=== PATIENT | female | born 1960 | race Caucasian/White ===

== ENCOUNTER 2019-08-04 14:30 | Emergency (ER) | payer OTHER, SELFPAY ==
[2019-08-04 14:31] VITALS: BP 158/79; PULSE 78; RESP 15; TEMP 36.7; O2SAT 94; BMI 42.3
[2019-08-04 14:35] VITALS: O2SAT 95
--- NOTE | 2019-08-04 14:42 | EKG12_ITS ---
Test Reason : SOB Blood Pressure : / mmHG Vent. Rate : 077 BPM Atrial Rate : 077 BPM P-R Int : 144 ms QRS Dur : 092 ms QT Int : 390 ms P-R-T Axes : 050 -08 023 degrees QTc Int : 441 ms Normal sinus rhythm Left ventricular hypertrophy with repolarization abnormality Abnormal ECG Confirmed by ZHANG BETHEA, ANNIE ([id number]), scientific editor MAUREEN LANDRY ([id number]) on 08/07/2019 11:42:03 AM Referred By: KEE Confirmed By:DARIN HOLCOMB MD
--- NOTE | 2019-08-04 14:42 | RAD_ITS ---
STUDY: X-RAY CHEST REASON FOR EXAM: Female, 59 years old. SOB, COUGH TECHNIQUE: Single AP portable view of the chest. COMPARISON: Comparison is made with prior study dated November 21, 2016. FINDINGS: EKG electrodes are seen. Mild degree of vascular congestion. There is no demonstrated pleural abnormality. There is mild cardiac enlargement. Normal mediastinum and jones. Normal visualized pulmonary arteries. There is atherosclerotic tortuosity of the aortic arch and descending thoracic aorta. There are diffuse degenerative changes of the visualized thoracic spine. Normal visualized ribs, clavicles, and shoulders. There is no demonstrated abnormality of the visualized soft tissue structures of the upper abdomen. RAD/Chest 1 View (Portable) IMPRESSION: Mild degree of vascular congestion. Electronically Signed: Alan Glasgow, at 15:00 EDT , Service support ,
--- NOTE | 2019-08-04 14:43 | ED.DCSUM_ITS ---
History of Present Illness Chief Complaint: Shortness of Breath Informant: Patient Onset: Weeks Current Severity: Mild Maximum Severity: Moderate Narrative: Patient presents with URI symptoms and cough. She states that about 2 weeks ago she became ill with flulike symptoms. She thought she was over that infection and went back to work last Saturday. By Saturday she had developed recurrent URI symptoms with cough. She was seen at urgent care. She had a nonspecific chest x-ray. She was given prednisone and albuterol inhaler. Patient states her symptoms worsened today. She felt some palpitations and called EMS. They gave a DuoNeb treatment in route. - Past Medical History (1) HLD (hyperlipidemia) Status: Chronic (2) HTN (hypertension) Status: Chronic (3) MAIA (obstructive sleep apnea) Status: Chronic (4) TIA (transient ischemic attack) Status: Chronic Past Medical History - Allergies and Home Meds Allergies/Adverse Reactions: Allergies No Known Allergies Allergy (Verified 01/13/18 08:35) Primary Care Physician: Dannie Ulloa MD [Primary Care Provider] - Prior records reviewed: Yes Surgical History: no surgical history Smoking Status: Never smoker - Family History Maternal Family History: Family History (Last Reviewed 01/13/18 @ 08:35 by Kelly Roche) Father Sudden cardiac Heart disease Family History: Reports: Dementia - age 70's Paternal Family History: Family History (Last Reviewed 01/13/18 @ 08:35 by Kelly Roche) Father Sudden cardiac Heart disease Family History: Reports: Heart Disease - age 55 Review of Systems General: Reports: Fever, Subjective Eyes: Denies: Visual changes - bilaterally ENT: Denies: Bilateral ear pain, Sore throat Cardiovascular: Reports: Palpitations. Denies: Chest pain Respiratory: Reports: Dyspnea, Cough, Sputum - Rare sputum production Gastrointestinal: Denies: Abdominal pain, Nausea, Vomiting, Diarrhea Genitourinary: Denies: Dysuria Musculoskeletal: Denies: Extremity Pain Skin: Denies: Rash Neurological: Denies: Headache Hematologic: Denies: Easy bruising, Easy bleeding Allergy: Denies: Uticaria Physical Exam Vital Signs/Narrative: Vital Signs Temp Pulse Resp BP Pulse Ox 08/04/19 14:31 98.1 F 78 15 158/79 H 94 Inital Vital Signs reviewed: Yes General: Well nourished, Well developed Head: Normocephalic ENT: Moist mucous membranes Neck: Supple Cardiovascular: Regular rate, Regular rhythm Respiratory: No distress, CTA bilaterally, - - Slight decreased air movement throughout.. Negative for: Rhonchi, Wheezing Abdomen: Soft, Nontender Extremities: Nontender, No edema Skin: Normal color, No rash Neurological: Alert, Oriented x3 Psychological: Normal affect Diagnostic/Tx/Re-eval Impressions Chest X-Ray 08/04/19 14:42 IMPRESSION: Mild degree of vascular congestion. Electronically Signed: Alan Pee, at 15:00 EDT , Service support , 08/04/19 14:42 Chest 1 View (Portable) [RAD] Stat Laboratory Results 08/04/19 08/04/19 08/04/19 14:55 14:55 14:55 WBC 9.5 RBC 4.92 Hgb 14.1 Hct 43.6 MCV 88.6 MCH 28.7 MCHC 32.3 RDW Std Deviation 46.4 H RDW Coeff of Cathy 14.5 Plt Count 328 MPV 9.7 Immature Gran % (Auto) 1.500 H Neut % (Auto) 82.5 H Lymph % (Auto) 12.9 L [place] % (Auto) 2.8 Eos % (Auto) 0.1 Baso % (Auto) 0.2 Absolute Neuts (auto) 7.8 H Absolute Lymphs (auto) 1.22 Nucleated RBC % 0 D-Dimer Quant (PE/DVT) < 0.27 L Sodium 138 Potassium 3.8 Chloride 105 Carbon Dioxide 25.0 Anion Gap 8 BUN 21 H Creatinine 1.08 H Estim Creat Clear Calc 53.19 Est GFR (MDRD) Af Amer 66 Est GFR (MDRD) Non-Af 55 L BUN/Creatinine Ratio 19.4 Glucose 350 H Calcium 8.9 Troponin I < 0.015 B-Natriuretic Peptide 08/04/19 14:55 WBC RBC Hgb Hct MCV MCH MCHC RDW Std Deviation RDW Coeff of Cathy Plt Count MPV Immature Gran % (Auto) Neut % (Auto) Lymph % (Auto) [place] % (Auto) Eos % (Auto) Baso % (Auto) Absolute Neuts (auto) Absolute Lymphs (auto) Nucleated RBC % D-Dimer Quant (PE/DVT) Sodium Potassium Chloride Carbon Dioxide Anion Gap BUN Creatinine Estim Creat Clear Calc Est GFR (MDRD) Af Amer Est GFR (MDRD) Non-Af BUN/Creatinine Ratio Glucose Calcium Troponin I B-Natriuretic Peptide 48.5 - EKG Initial EKG Interpretation: Sinus Rhythm - Sinus at 77 with no acute ischemia. - Medical Decision Making Patient was given a DuoNeb treatment with EMS. She does not have any wheezing here. I was able to review EMS note. She was not hypoxic with EMS and they document only diminished breath sounds. On repeat evaluation patient is resting comfortably. I reviewed her test results with her. At this time I will cover her with antibiotics secondary to bronchitis as she has been ill now for 2 weeks. First dose will be given here and prescription will be sent to [facility]. Patient's blood sugar is elevated today but she has been on steroids. I did advise her of this and she needs to have this rechecked. ED Disposition - Plan for ED Patient: Disposition: Home or Assisted Living Diagnosis: Bronchitis Instructions: BRONCHITIS, Antiobiotic Treatment (Adult) Prescriptions: Doxycycline 100 mg PO BID #20 cap Transmission Status: Pending to [facility]/pharmacy #[id number] Referrals: Dannie Ulloa MD [Primary Care Provider] - 1 Week if not improving
[2019-08-04 15:04] LABS: Absolute Lymphocyte Count 1.22 X10^3/uL (0.83-4.51); Absolute Neutrophil Count 7.8 X10^3/uL (2.0-7.7); Basophil# 0.02 X10^3/uL; Basophil% 0.2 % (0-1); Eosinophil# 0.01 X10^3/uL; Eosinophils% 0.1 % (0-5); Hematocrit 43.6 % (37-47); Hemoglobin 14.1 g/dL (12.0-15.0); Lymphocyte # 1.22 X10^3/ul (4.0); Lymphocyte % 12.9 % (19-41); Mean Corp Hgb Conc 32.3 g/dL (32-36); Mean Corpuscular Hgb 28.7 pg (27.0-32.0); Mean Corpuscular Volume 88.6 fL (81-99); Mean Platelet Vol. 9.7 fl (6.2-12.0); Monocyte# 0.27 X10^3/uL; Monocyte% 2.8 % (0-10); NRBC Flagged by Analyzer 0 % (0-5); Neutrophil # 7.83 X10^3/uL (2.7-7.7); Neutrophil % 82.5 % (47-70); Platelet Count 328 K/mm3 (150-450); RBC Distribution Width CV 14.5 % (11.6-14.6); RBC Distribution Width SD 46.4 fl (35.1-43.9); Red Blood Count 4.92 M/mm3 (4.2-5.4); White Blood Count 9.5 K/mm3 (4.4-11.0)
[2019-08-04 15:19] LABS: D-Dimer Quantitative (DVT/PE) < 0.27 FEU/ug/m (0.27-0.49)
[2019-08-04 15:22] LABS: Anion Gap 8 (5-15); BUN 21 mg/dL (7-18); BUN/Creat Ratio 19.4 RATIO (10-20); Calcium,Total 8.9 mg/dL (8.5-10.1); Chloride 105 mmol/L (98-107); Creatinine, Serum 1.08 mg/dL (0.55-1.02); EST Glomerular Filtration Rate 55 mL/min (>60); Est Glom Filt Rate - Afr Amer 66 mL/min (>60); Estimated Creatinine Clearance 53.19 ml/min; Glucose 350 mg/dL (74-106); Potassium 3.8 mmol/L (3.5-5.1); Sodium Level 138 mmol/L (136-145)
[2019-08-04 15:27] LABS: BNP,B-Type NATRIURETIC PEPTIDE 48.5 pg/mL (0-100)
[2019-08-04 17:20] VITALS: BP 160/87; PULSE 70; RESP 18; O2SAT 93
[2019-08-04] MEDS: Doxycycline 100 MG CAPSULE PO (17:30)
== END 2019-08-04 17:53 | disposition home or self-care (01) ==
PROVIDERS: Emergency Provider Emergency Medicine; PCP Internal Medicine
DX: J40 Bronchitis, not specified as acute or chronic (principal); R00.2 Palpitations; I10 Essential (primary) hypertension; E78.5 Hyperlipidemia, unspecified; G47.33 Obstructive sleep apnea (adult) (pediatric); Z79.899 Other long term (current) drug therapy; Z86.73 Personal history of transient ischemic attack (TIA), and cerebral infarction without residual deficits
CPT/HCPCS: 71045; 80048; 83880; 84484; 85025; 85379; 93005; 99285; A4216

== ENCOUNTER 2019-11-18 20:16 | Emergency (ER) | payer OTHER, SELFPAY ==
[2019-11-18 20:17] VITALS: BP 173/74; PULSE 83; RESP 18; TEMP 36.6; O2SAT 95; BMI 41.7
[2019-11-18 20:19] VITALS: BP 173/74; PULSE 83; RESP 18; TEMP 36.6; O2SAT 95
--- NOTE | 2019-11-18 20:39 | EKG12_ITS ---
Test Reason : DYSRHYTHMIA Blood Pressure : / mmHG Vent. Rate : 068 BPM Atrial Rate : 068 BPM P-R Int : 152 ms QRS Dur : 086 ms QT Int : 408 ms P-R-T Axes : 042 -03 020 degrees QTc Int : 433 ms Normal sinus rhythm Normal ECG Confirmed by ZHANG BETHEA, ANNIE ([id number]), legal editor JOSE DORADO ([id number]) on 11/20/2019 10:15:30 AM Referred By: KEE Confirmed By:DARIN HOLCOMB MD
--- NOTE | 2019-11-18 20:40 | ED.DCSUM_ITS ---
History of Present Illness Chief Complaint: Cough Informant: Patient Onset: Today Current Severity: Mild Maximum Severity: Moderate Narrative: Patient present secondary to cough and shortness of breath. Symptoms started this morning. She had chills and subjective fever. Cough is nonproductive. She states she did feel like she was wheezing this morning. She initially thought she was getting bronchitis but started to feel worse this evening and came in for treatment. 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 - Past Medical History (1) HLD (hyperlipidemia) Status: Chronic (2) HTN (hypertension) Status: Chronic (3) MAIA (obstructive sleep apnea) Status: Chronic (4) TIA (transient ischemic attack) Status: Chronic Past Medical History - Allergies and Home Meds Allergies/Adverse Reactions: Allergies No Known Allergies Allergy (Verified 01/13/18 08:35) Primary Care Physician: Dannie Ulloa MD [Primary Care Provider] - Prior records reviewed: Yes Surgical History: no surgical history Smoking Status: Never smoker - Family History Maternal Family History: Family History (Last Reviewed 01/13/18 @ 08:35 by Kelly Roche) Father Sudden cardiac Heart disease Family History: Reports: Dementia - age 70's Paternal Family History: Family History (Last Reviewed 01/13/18 @ 08:35 by Kelly Roche) Father Sudden cardiac Heart disease Family History: Reports: Heart Disease - age 55 Review of Systems General: Reports: Chills, Fever, Subjective Eyes: Denies: Visual changes - bilaterally ENT: Denies: Bilateral ear pain Cardiovascular: Denies: Chest pain Respiratory: Reports: Dyspnea, Cough. Denies: Sputum Gastrointestinal: Reports: Abdominal pain, Nausea. Denies: Vomiting Genitourinary: Denies: Dysuria Musculoskeletal: Reports: Swelling. Denies: Extremity Pain Skin: Denies: Rash Neurological: Denies: Headache Hematologic: Denies: Easy bruising, Easy bleeding Allergy: Denies: Uticaria Physical Exam Vital Signs/Narrative: Vital Signs Temp Pulse Resp BP Pulse Ox 11/18/19 20:19 97.9 F 83 18 173/74 H 95 11/18/19 20:17 97.9 F 83 18 173/74 H 95 Inital Vital Signs reviewed: Yes General: Well nourished, Well developed Head: Normocephalic ENT: Moist mucous membranes Neck: Supple Cardiovascular: Regular rate, Regular rhythm Respiratory: No distress, CTA bilaterally Abdomen: Soft, Nontender, Normal bowel sounds Extremities: - - 2+ edema left lower extremity. No focal tenderness. No palpable cords. Skin: Normal color Neurological: Alert, Oriented x3 Psychological: Normal affect Diagnostic/Tx/Re-eval Impressions Chest X-Ray 11/18/19 21:00 IMPRESSION: Findings suspicious for Covid 19 pneumonia. Clinical correlation is recommended Electronically Signed: Micha Gonzalez MD at 21:38 EDT , Service support , 11/18/19 21:00 Chest 1 View (Portable) [RAD] Stat Laboratory Results 11/18/19 11/18/19 11/18/19 20:49 20:50 20:50 WBC 7.4 RBC 4.64 Hgb 13.6 Hct 42.1 MCV 90.7 MCH 29.3 MCHC 32.3 RDW Std Deviation 48.9 H RDW Coeff of Cathy 14.6 Plt Count 298 MPV 10.0 Immature Gran % (Auto) 0.400 Neut % (Auto) 69.3 Lymph % (Auto) 18.[address] [place] % (Auto) 8.9 Eos % (Auto) 2.7 Baso % (Auto) 0.4 Absolute Neuts (auto) 5.1 Absolute Lymphs (auto) 1.36 Nucleated RBC % 0 Sodium 140 Potassium 3.5 Chloride 107 Carbon Dioxide 28.0 Anion Gap 5 BUN 18 Creatinine 0.89 Estim Creat Clear Calc 66.96 Est GFR (MDRD) Af Amer 83 Est GFR (MDRD) Non-Af 68 BUN/Creatinine Ratio 20.2 H Glucose 149 H Calcium 8.6 Troponin I < 0.015 B-Natriuretic Peptide COVID-19 (JOSE ENRIQUE) Negative 11/18/19 20:50 WBC RBC Hgb Hct MCV MCH MCHC RDW Std Deviation RDW Coeff of Cathy Plt Count MPV Immature Gran % (Auto) Neut % (Auto) Lymph % (Auto) [place] % (Auto) Eos % (Auto) Baso % (Auto) Absolute Neuts (auto) Absolute Lymphs (auto) Nucleated RBC % Sodium Potassium Chloride Carbon Dioxide Anion Gap BUN Creatinine Estim Creat Clear Calc Est GFR (MDRD) Af Amer Est GFR (MDRD) Non-Af BUN/Creatinine Ratio Glucose Calcium Troponin I B-Natriuretic Peptide 13.4 COVID-19 (JOSE ENRIQUE) - EKG Initial EKG Interpretation: Sinus Rhythm - Sinus at 68 with no acute ischemia. - Medical Decision Making She was given albuterol MDI on arrival. She does feel this helped her breathing. Work-up at this time is unremarkable. Although her Covid test is negative there are changes noted on her chest x-ray which may be consistent with Covid infection. In light of this I advised the patient that she should self monitor at home and avoid exposure to people until she is completely free of all respiratory symptoms for at least 4 days. She will be treated with a course of doxycycline for bronchitis. ED Disposition - Plan for ED Patient: Disposition: Home or Assisted Living Diagnosis: Bronchitis Instructions: ED Upper Resp Infec Abx Tx Prescriptions: Doxycycline 100 mg PO BID #20 cap Transmission Status: Pending to [facility]/pharmacy #[id number] Referrals: Dannie Ulloa MD [Primary Care Provider] - 1-2 Weeks
--- NOTE | 2019-11-18 21:00 | RAD_ITS ---
STUDY: X-RAY CHEST REASON FOR EXAM: Female, 59 years old. COUGH, CHILLS, SHORTNESS OF BREATH, FATIGUE, WEAKNESS. TECHNIQUE: AP portable COMPARISON: None. FINDINGS: There is interstitial thickening seen in the right lower lobe with diffusely increased density suspicious for atypical viral pneumonia.. There is no demonstrated pleural abnormality. Heart is enlarged. Normal mediastinum and jones. Normal visualized pulmonary arteries. Normal visualized aortic arch and descending thoracic aorta. Dorsal spine demonstrates degenerative change Normal visualized ribs, clavicles, and shoulders. There is no demonstrated abnormality of the visualized soft tissue structures of the upper abdomen. RAD/Chest 1 View (Portable) IMPRESSION: Findings suspicious for Covid 19 pneumonia. Clinical correlation is recommended Electronically Signed: Micha Gonzalez MD at 21:38 EDT , Service support ,
[2019-11-18 21:07] LABS: Absolute Lymphocyte Count 1.36 X10^3/uL (0.83-4.51); Absolute Neutrophil Count 5.1 X10^3/uL (2.0-7.7); Basophil# 0.03 X10^3/uL; Basophil% 0.4 % (0-1); Eosinophils% 2.7 % (0-5); Hematocrit 42.1 % (37-47); Hemoglobin 13.6 g/dL (12.0-15.0); Lymphocyte # 1.36 X10^3/ul (4.0); Lymphocyte % 18.3 % (19-41); Mean Corp Hgb Conc 32.3 g/dL (32-36); Mean Corpuscular Hgb 29.3 pg (27.0-32.0); Mean Corpuscular Volume 90.7 fL (81-99); Monocyte# 0.66 X10^3/uL; Monocyte% 8.9 % (0-10); NRBC Flagged by Analyzer 0 % (0-5); Neutrophil # 5.14 X10^3/uL (2.7-7.7); Neutrophil % 69.3 % (47-70); Platelet Count 298 K/mm3 (150-450); RBC Distribution Width CV 14.6 % (11.6-14.6); RBC Distribution Width SD 48.9 fl (35.1-43.9); Red Blood Count 4.64 M/mm3 (4.2-5.4); White Blood Count 7.4 K/mm3 (4.4-11.0)
[2019-11-18 21:21] LABS: Anion Gap 5 (5-15); BUN 18 mg/dL (7-18); BUN/Creat Ratio 20.2 RATIO (10-20); Calcium,Total 8.6 mg/dL (8.5-10.1); Chloride 107 mmol/L (98-107); Creatinine, Serum 0.89 mg/dL (0.55-1.02); EST Glomerular Filtration Rate 68 mL/min (>60); Est Glom Filt Rate - Afr Amer 83 mL/min (>60); Estimated Creatinine Clearance 66.96 ml/min; Glucose 149 mg/dL (74-106); Potassium 3.5 mmol/L (3.5-5.1); Sodium Level 140 mmol/L (136-145)
[2019-11-18 21:35] LABS: BNP,B-Type NATRIURETIC PEPTIDE 13.4 pg/mL (0-100)
[2019-11-18 22:26] LABS: Probe Check PASS; Specimen Processing Control PASS
[2019-11-18 22:42] VITALS: BP 141/78; PULSE 74; RESP 17; O2SAT 94
[2019-11-18 22:43] VITALS: BP 141/78; PULSE 74; RESP 17; O2SAT 94
[2019-11-18] MEDS: Doxycycline 100 MG CAPSULE PO (23:04)
== END 2019-11-18 23:06 | disposition home or self-care (01) ==
PROVIDERS: Emergency Provider Emergency Medicine; PCP Internal Medicine
DX: J40 Bronchitis, not specified as acute or chronic (principal); R06.2 Wheezing; I10 Essential (primary) hypertension; E78.5 Hyperlipidemia, unspecified; G47.33 Obstructive sleep apnea (adult) (pediatric); Z79.899 Other long term (current) drug therapy; Z86.73 Personal history of transient ischemic attack (TIA), and cerebral infarction without residual deficits
CPT/HCPCS: 71045; 80048; 83880; 84484; 85025; 87635; 93005; 99285; G2023; U0003

== ENCOUNTER → 2019-11-25 11:40 | Outpatient (CLI) | payer OTHER, SELFPAY ==
[2019-11-18 20:17] VITALS: BMI 41.7
== END ==
PROVIDERS: PCP Internal Medicine; Visit Provider Internal Medicine
DX: Z20.828 Contact with and (suspected) exposure to other viral communicable diseases (principal); J18.9 Pneumonia, unspecified organism
CPT/HCPCS: 87635; G2023; U0003

== ENCOUNTER 2020-10-07 14:35 | Emergency (ER) | payer MEDICAID, SELFPAY ==
[2020-10-07 14:37] VITALS: BP 123/76; PULSE 61; RESP 17; TEMP 36.2; O2SAT 95; BMI 38.5
--- NOTE | 2020-10-07 14:40 | RAD_ITS ---
STUDY: X-RAY - LEFT FOOT CLINICAL: Female, 60 years old. INJURY TECHNIQUE: 3 view(s) of the foot. COMPARISON: None. FINDINGS: Calcaneal spurs. Normal visualized subtalar, talonavicular, calcaneocuboid, tarsal and tarsometatarsal articulations. Normal metatarsi. Normal metatarsophalangeal joint of the great toe. Normal tibial and fibular sesamoid bones. Normal interphalangeal joint of the great toe. Normal phalanges of the great toe. Normal second through fifth metatarsophalangeal joints. Normal interphalangeal joints and phalanges of the lesser toes. Small ankle joint effusion. Soft tissue swelling. RAD/Foot min 3 Views IMPRESSION: Soft tissue swelling. Electronically Signed: Alan Glasgow MD at 15:02 EDT , Service support ,
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
== END 2020-10-07 15:41 | disposition home or self-care (01) ==
LOC: ED 15:34
PROVIDERS: Emergency Provider Emergency Medicine; PCP Internal Medicine
DX: S90.32XA Contusion of left foot, initial encounter (principal); V43.92XA Unspecified car occupant injured in collision with other type car in traffic accident, initial encounter; Y93.9 Activity, unspecified; Y92.9 Unspecified place or not applicable; Y99.9 Unspecified external cause status; I10 Essential (primary) hypertension; E78.5 Hyperlipidemia, unspecified; Z79.1 Long term (current) use of non-steroidal anti-inflammatories (NSAID); Z79.899 Other long term (current) drug therapy
CPT/HCPCS: 73630; 99282

== ENCOUNTER → 2020-10-11 14:12 | Outpatient (CLI) | payer MEDICAID, SELFPAY ==
[2020-10-07 14:37] VITALS: BMI 38.5
--- NOTE | 2020-10-11 14:15 | VDLE_ITS ---
Reason For Study: pain Procedure LEFT This is a venous duplex using B-mode, color GSV is normal. flow and spectral Doppler. CFV is compressible, spontaneous, phasic, Exam performed in department. competent, and demonstrates normal The exam was abbreviated due to the COVID 19 augmentation. protocol. FV is compressible, spontaneous, phasic, The exam was diagnostic. competent and demonstrates normal A preliminary report was called and/or faxed augmentation. to Mary Richards. POP V is compressible, spontaneous, phasic, competent and demonstrates normal augmentation. T/P Trunk is compressible. PTV is compressible. LT PerV is compressible. VL/Venous Duplex US, Unilateral Interpretation Summary Deep veins of the left lower extremity are patent and compressible segmentally. There is no evidence of left lower extremity deep vein thrombosis. Valvular competence appears intac t within the proximal deep venous system on the left . The left great saphenous vein appears patent a nd compressible segmentally. Ordering Physician: Mary Richards Performed By: Yan Sandoval RVT
== END ==
PROVIDERS: PCP Internal Medicine; Referring Provider Nurse Practitioner; Visit Provider Nurse Practitioner
DX: M79.662 Pain in left lower leg (principal); R60.0 Localized edema
CPT/HCPCS: 93971

== ENCOUNTER → 2020-12-22 09:43 | Outpatient (CLI) | payer MEDICAID, SELFPAY ==
--- NOTE | 2020-12-22 09:59 | MRI_ITS ---
STUDY: MRI BRAIN WITH AND WITHOUT CONTRAST (ATTENTION INTERNAL AUDITORY CANALS - I.A.C.''s) REASON FOR EXAM: Female, 60 years old. HEARING LOSS right ear, tinnitus TECHNIQUE: Standardized multiplanar fat and water weighted pulse sequences were obtained. 23ml IV Dotarem was administered for the contrast portion of the examination. COMPARISON: None. FINDINGS: Normal bilateral temporal bones. Normal bilateral internal auditory canals. There is no demonstrated intracanalicular or cisternal vestibular schwannoma (acoustic neuroma). There is no enhancement of the bilateral VIIth or VIIIth cranial nerves. Normal bilateral cochlea, vestibules and semicircular canals. Normal size of the ventricles and extra-axial spaces for the patient''s age. Normal white matter tracts of the supratentorial brain. There is no evidence for recent intracranial ischemia or other cause of cytotoxic edema on diffusion weighted imaging (DWI). Normal bilateral basal ganglia. Normal thalami. Normal flow voids within the major intracranial circulation suggesting patency by spin echo criteria. Normal venous enhancement. There is no enhancing intra-axial or extra-axial abnormality. There is no extra-axial fluid accumulation. Normal sella turcica, pituitary gland, infundibular stalk, optic chiasm and hypothalamus. Normal tectal plate and pineal gland. Normal midbrain, noy and medulla. Normal cerebellum. Normal basal cisterns. No demonstrated orbital abnormality, within the constraints of a routine brain study. Normal visualized paranasal sinuses. Normal calvarium and skull base. Normal visualized soft tissue structures. Normal visualized upper cervical spine. MRI/Brain W/WO Contrast IMPRESSION: Normal unenhanced and enhanced MRI of the bilateral internal auditory canals (I.A.C''s). Electronically Signed: Gonzalez Carrillo MD at 13:04 EDT Tel , Service support ,
[2020-12-22 10:11] LABS: CREATININE FINGERSTICK 0.8 mg/dL (0.55-1.02); EGFR FINGERSTICK > 60.0000 mL/min (>60)
== END ==
PROVIDERS: PCP Internal Medicine; Referring Provider Otolaryngology Otolaryngology/Facial Plastic Surgery; Visit Provider Otolaryngology Otolaryngology/Facial Plastic Surgery
DX: H91.90 Unspecified hearing loss, unspecified ear (principal)
CPT/HCPCS: 70553; A9575

== ENCOUNTER 2021-03-05 10:25 | Emergency (ER) | payer MEDICAID, SELFPAY ==
[2021-03-05 10:27] VITALS: BP 168/77; PULSE 76; RESP 18; TEMP 36.4; O2SAT 95; BMI 38.9
[2021-03-05 10:51] VITALS: O2SAT 97
--- NOTE | 2021-03-05 10:51 | RAD_ITS ---
STUDY: X-RAY CHEST REASON FOR EXAM: Female, 61 years old. chest pain TECHNIQUE: Single AP portable view of the chest. COMPARISON: 11/18/2019 FINDINGS: Cardiac monitoring leads are present. The lungs are clear and expanded. There is no demonstrated pleural abnormality. There is mild cardiac enlargement. Normal mediastinum and jones. Normal visualized pulmonary arteries. Normal visualized aortic arch and descending thoracic aorta. There are diffuse degenerative changes of the visualized thoracic spine. Normal visualized ribs, clavicles, and shoulders. There is no demonstrated abnormality of the visualized soft tissue structures of the upper abdomen. RAD/Chest 1 View (Portable) IMPRESSION: Mild cardiac enlargement, stable in appearance. No acute intrathoracic process. The lungs now appear clear with no pulmonary infiltrates identified. Electronically Signed: Garima Alvarez MD at 11:39 EDT , Service support ,
--- NOTE | 2021-03-05 10:51 | EKG12_ITS ---
Test Reason : CP Blood Pressure : / mmHG Vent. Rate : 077 BPM Atrial Rate : 077 BPM P-R Int : 152 ms QRS Dur : 088 ms QT Int : 408 ms P-R-T Axes : 045 -02 -18 degrees QTc Int : 461 ms Normal sinus rhythm Nonspecific ST and T wave abnormality Abnormal ECG Confirmed by NAZ BETHEA, SURY ([id number]), continuity editor TAYLOR OAKLEY ([id number]) on 03/08/2021 9:24:19 AM Referred By: ADY Confirmed By:SURY CHILDS MD
--- NOTE | 2021-03-05 10:52 | ED.VIS.CHEST ---
HPI History of Present Illness Chief Complaint: Chest Pain Informant: patient Onset/Context/Timing Onset: Yesterday Activity at onset: gradual Timing: Continuous Quality: Positive for Sharp and Tightness Location: Substernal Worsened By: Nothing Relieved By: Nothing Associated Symptoms: Positive for Dyspnea, Lightheadedness and Palpitations; Negative for Nausea, Vomiting, Diaphoresis, Cough, Fever and Acid Reflux Narrative Narrative: Patient presents with chest pain that began yesterday. Patient states it has gradually gotten worse. Patient states it is worse this morning when she woke up. Patient describes it as sharp and tight. Patient states pain is over the substernal area. Patient states it radiates straight through to her back. Patient states it is worse whenever she takes a deep breath. Patient admits to some shortness of breath. Patient denies any nausea, vomiting, or diaphoresis. Patient denies any cough or fevers. Patient admits to some lightheadedness and some palpitations. [facility] Medical History (Updated 03/05/21 @ 14:[address] Bahman Roque DO) Abnormal electrocardiogram Chest pain, unspecified HLD (hyperlipidemia) HTN (hypertension) Hypokalemia Nonsustained ventricular tachycardia Syncope and collapse Home Medications sertraline 100 mg PO QHS 12/24/14 [History Last Taken 11/20/16] metoprolol succinate 25 mg PO DAILY #30 tab.er.24h 11/07/16 [Rx Last Taken 11/23/16] cyanocobalamin (vitamin B-12) 1,000 mcg PO DAILY 11/21/16 [History Last Taken 11/20/16] potassium chloride 20 meq PO DAILY 11/23/16 [History Last Taken 11/22/16] amlodipine 10 mg tablet 10 mg PO DAILY #30 tab 11/29/17 [Rx Last Taken Unknown] fluticasone furoate 2 sprays NS DAILY 08/04/19 [History Last Taken Unknown] meloxicam 15 mg PO DAILY 08/04/19 [History Last Taken Unknown] atorvastatin 20 mg PO DAILY 03/05/21 [History Last Taken Unknown] Allergy/AdvReac Type Severity Reaction Status Date / Time No Known Allergies Allergy Verified 03/05/21 10:25 Family History Father , age 55 Sudden cardiac Heart disease Surgical History Hx of left leg vein ablation (~09/2016) Social History Smoking Status: Never smoker alcohol intake: current alcohol intake frequency: holidays/special occasions only Alcohol type: beer, wine and hard liquor substance use type: does not use caffeine: Yes Type: coffee Number of servings: 3 what type of physical activity do you participate in: none seatbelt use: always do you feel safe at home: Yes ROS ROS ED Constitutional Constitutional ED: Denies chills or fever(s) Eyes Eyes: Denies blurry vision or change in vision ENT ENT ED: Denies rhinorrhea or sore throat Cardiovascular Cardiovascular: Reports chest pain and palpitations Respiratory/Chest Respiratory/Chest: Reports dyspnea; Denies cough Gastrointestinal Gastrointestinal: Reports nausea; Denies abdominal pain or vomiting Genitourinary Genitourinary ED: Denies dysuria or hematuria Musculoskeletal Musculoskeletal: Reports back pain; Denies neck pain Integumentary Denies abscess or rash Neurologic Neurologic: Reports headache(s); Denies weakness Allergic/Immunologic Allergic/Immunologic ED: Denies mouth swelling or urticaria EXAM Physical Exam Const Vital Signs: 03/05/21 10:27 03/05/21 10:44 03/05/21 10:51 Temperature 97.6 F L Temperature Source Temporal Pulse Rate 76 Respiratory Rate 18 Respiratory Effort Normal Non-Labored Respiratory Pattern Normal Blood Pressure 168/77 H Blood Pressure Mean 107 Pulse Ox 95 97 Oxygen Delivery Method Room Air Room Air 03/05/21 12:23 03/05/21 13:08 03/05/21 14:08 Temperature Temperature Source Pulse Rate 67 57 L 60 Respiratory Rate 18 18 17 Respiratory Effort Respiratory Pattern Blood Pressure 138/72 H 140/79 H 135/83 H Blood Pressure Mean 94 99 Pulse Ox Oxygen Delivery Method Positive well nourished, well developed and obese General Appearance ED: well developed Nutritional Appearance: obese HEENT normocephalic and atraumatic Eyes PERRL and EOMs intact bilaterally Neck supple and no JVD Chest Wall Chest: tenderness sternum Resp normal respiratory effort and clear to auscultation bilaterally Effort and Inspection: Negative for respiratory distress Cardio regular rate, regular rhythm and no murmurs GI normal to inspection, nondistended, normoactive bowel sounds, soft to palpation, non-tender and non-distended Extremity normal to inspection General Extremety ED: Negative for edema or tenderness General Extremity: Negative for edema Neuro oriented x3, CN's II-XII intact bilaterally and no sensory deficits noted Sensorium / Orientation: awake and alert Motor Exam: strength 5/5 throughout Psych mental status grossly normal Heart Score History: Slightly/Non-Suspicious ECG: Nonspecific Repolarization Age: >45 - <65 years Risk Factors: 1 or 2 Risk Factors Troponin: </= Normal Limit Score: 3 MDM MDM MDM Narrative Medical decision making narrative: EKG was obtained. On my interpretation, it shows normal sinus rhythm with a rate of 77. There are nonspecific ST-T wave changes in V4 through V6. CBC and basic metabolic profile were essentially within normal limits. High-sensitivity troponin was normal. Portable 1 view chest x-ray was obtained. On my interpretation, lung mccallum are clear. There is mild cardiomegaly. Bony thorax is normal. There is no acute process noted. Radiologist also interpreted the x-ray and agrees. 2-hour repeat high-sensitivity troponin was obtained and was still normal and unchanged. Patient was advised of her findings. Patient has a HEART score of 3. Patient was advised that this is low risk for acute cardiac event. Patient was instructed to follow-up with her primary care physician in 5 to 7 days. Patient understood and was agreeable with the plan. All questions were answered. Lab Data Labs: Laboratory Results - last 24 hr 03/05/21 03/05/21 03/05/21 10:35 10:35 12:40 WBC 5.3 RBC 4.72 Hgb 14.2 Hct 43.4 MCV 91.9 MCH 30.1 MCHC 32.7 RDW Std Deviation 48.9 H RDW Coeff of Cathy 14.4 Plt Count 257 MPV 11.0 Immature Gran % (Auto) 0.600 Neut % (Auto) 66.0 Lymph % (Auto) 23.6 Levy % (Auto) 6.2 Eos % (Auto) 3.0 Baso % (Auto) 0.6 Absolute Neuts (auto) 3.5 Absolute Lymphs (auto) 1.25 Nucleated RBC % 0 Sodium 142 Potassium 3.2 L Chloride 106 Carbon Dioxide 29.0 Anion Gap 7 BUN 17 Creatinine 0.94 Estim Creat Clear Calc 61.79 Est GFR (MDRD) Af Amer 77 Est GFR (MDRD) Non-Af 64 BUN/Creatinine Ratio 18.0 Glucose 170 H Calcium 8.9 Troponin I High Sens 10 10 Radiography Diagnostic Testing: Clinical Impression(s) from Imaging Studies Chest X-Ray 03/05/21 10:51 IMPRESSION: Mild cardiac enlargement, stable in appearance. No acute intrathoracic process. The lungs now appear clear with no pulmonary infiltrates identified. Electronically Signed: Garima Alvarez MD at 11:39 EDT , Service support , EKG Initial EKG: Attestation: I personally reviewed and interpreted this EKG as follows: Interpretation: Sinus Rhythm (77) and Non-Specific ST Changes Prior EKG tracings: available for review Discharge Plan Triage Chief Complaint: Chest Pain ED Provider: Bahman Roque Dx/Rx/DC Orders Clinical Impression: Chest pain of uncertain etiology Instructions: ED Chest Pain, Uncertain Cause Prescriptions: No Action sertraline 100 MG tablet 100 mg PO QHS RF: 0 metoprolol succinate 25 MG tablet extended release 24 hr 25 mg PO DAILY Qty: 30 RF: 0 potassium chloride 20 MEQ tablet,ER particles/crystals 20 meq PO DAILY RF: 0 cyanocobalamin (vitamin B-12) 1,000 MCG tablet 1,000 mcg PO DAILY RF: 0 meloxicam 15 MG tablet 15 mg PO DAILY RF: 0 fluticasone furoate 5.9 ML spray,suspension 2 sprays NS DAILY RF: 0 atorvastatin 20 MG tablet 20 mg PO DAILY RF: 0 amlodipine 10 mg tablet 10 mg PO DAILY Qty: 30 RF: 11 Primary Care Provider: Dannie Ulloa Referrals: Dannie Ulloa MD [Primary Care Provider] - 3-5 Days Disposition Disposition: Home, Self Care Discharge Date/Time: 03/05/21 14:09
[2021-03-05] MEDS: Aspirin 81 MG TAB.CHEW 324 MG PO (10:57)
[2021-03-05 11:01] LABS: Absolute Lymphocyte Count 1.25 X10^3/uL (0.83-4.51); Absolute Neutrophil Count 3.5 X10^3/uL (2.0-7.7); Basophil# 0.03 X10^3/uL; Basophil% 0.6 % (0-1); Eosinophil# 0.16 X10^3/uL; Hematocrit 43.4 % (37-47); Hemoglobin 14.2 g/dL (12.0-15.0); Lymphocyte # 1.25 X10^3/ul (0.83-4.51); Lymphocyte % 23.6 % (19-41); Mean Corp Hgb Conc 32.7 g/dL (32-36); Mean Corpuscular Hgb 30.1 pg (27.0-32.0); Mean Corpuscular Volume 91.9 fL (81-99); Monocyte# 0.33 X10^3/uL; Monocyte% 6.2 % (0-10); NRBC Flagged by Analyzer 0 % (0-5); Neutrophil # 3.49 X10^3/uL (2.7-7.7); Platelet Count 257 K/mm3 (150-450); RBC Distribution Width CV 14.4 % (11.6-14.6); RBC Distribution Width SD 48.9 fl (35.1-43.9); Red Blood Count 4.72 M/mm3 (4.2-5.4); White Blood Count 5.3 K/mm3 (4.4-11.0)
[2021-03-05 11:15] LABS: Anion Gap 7 (5-15); BUN 17 mg/dL (7-18); Calcium,Total 8.9 mg/dL (8.5-10.1); Chloride 106 mmol/L (98-107); Creatinine, Serum 0.94 mg/dL (0.55-1.02); EST Glomerular Filtration Rate 64 mL/min (>60); Est Glom Filt Rate - Afr Amer 77 mL/min (>60); Estimated Creatinine Clearance 61.79 ml/min; Glucose 170 mg/dL (74-106); Potassium 3.2 mmol/L (3.5-5.1); Sodium Level 142 mmol/L (136-145); Troponin-I HS 10 pg/mL (3.0-54.0)
[2021-03-05 12:23] VITALS: BP 138/72; PULSE 67; RESP 18
[2021-03-05 13:02] LABS: Troponin-I HS 10 pg/mL (3.0-54.0)
[2021-03-05 13:08] VITALS: BP 140/79; PULSE 57; RESP 18
[2021-03-05 14:08] VITALS: BP 135/83; PULSE 60; RESP 17
== END 2021-03-05 14:09 | disposition home or self-care (01) ==
PROVIDERS: Emergency Provider Emergency Medicine; PCP Internal Medicine
DX: R07.9 Chest pain, unspecified (principal); R06.02 Shortness of breath; R42 Dizziness and giddiness; R00.2 Palpitations; I47.2 Ventricular tachycardia; I10 Essential (primary) hypertension; E78.5 Hyperlipidemia, unspecified; E66.9 Obesity, unspecified; Z79.1 Long term (current) use of non-steroidal anti-inflammatories (NSAID); Z79.899 Other long term (current) drug therapy
CPT/HCPCS: 36415; 71045; 80048; 84484; 85025; 93005; 99285; A4216

== ENCOUNTER 2021-07-19 11:43 | Emergency (ER) | payer MEDICAID, SELFPAY ==
[2021-07-19 11:44] VITALS: BP 155/75; PULSE 78; RESP 24; TEMP 36.1; O2SAT 95; BMI 39.2
[2021-07-19] MEDS: Ipratropium/Albuterol Sulfate 3 ML AMPUL.NEB INHALATION (12:36)
[2021-07-19] MEDS: Albuterol 2.5 MG/3 ML VIAL.NEB. INHALATION (12:36)
[2021-07-19 12:37] VITALS: PULSE 70; RESP 18
--- NOTE | 2021-07-19 12:45 | RAD_ITS ---
STUDY: X-RAY CHEST REASON FOR EXAM: Female, 61 years old. Cough TECHNIQUE: Single AP portable view of the chest. COMPARISON: Comparison is made with prior study dated 03/05/2021. FINDINGS: Mild increased markings at the right lung base suggestive of early right lower lobe infiltrate. There is no demonstrated pleural abnormality. Normal size heart. Normal mediastinum and jones. Normal visualized pulmonary arteries. There is atherosclerotic tortuosity of the aortic arch and descending thoracic aorta. There are diffuse degenerative changes of the visualized thoracic spine. Normal visualized ribs, clavicles, and shoulders. There is no demonstrated abnormality of the visualized soft tissue structures of the upper abdomen. RAD/Chest 1 View (Portable) IMPRESSION: Findings suggestive of early right lower lobe infiltrate. Electronically Signed: Alan Glasgow MD at 13:08 EST ,
--- NOTE | 2021-07-19 12:47 | EX.ED.DYSGE1 ---
HPI History of Present Illness Chief Complaint: Shortness of Breath Informant: patient Narrative Narrative: 61-year-old female presents the emergency department with dyspnea and cough. Patient states that she frequently will get bronchitis this time of year. Today she was feeling more tightness in the chest especially with time to take a breath and hearing wheezing she used to hair letter several times but it did not help. She called her doctor's office advised her to come to emergency. She denies any fever. No sore throat no vomiting or diarrhea. [facility] Medical History (Updated 07/19/21 @ 13:[address] Jose Cruz Baig DO) Abnormal electrocardiogram Chest pain, unspecified HLD (hyperlipidemia) HTN (hypertension) Hypokalemia Nonsustained ventricular tachycardia Syncope and collapse Home Medications sertraline 100 mg PO QHS 12/24/14 [History Last Taken 11/20/16] metoprolol succinate 25 mg PO DAILY #30 tab.er.24h 11/07/16 [Rx Last Taken 11/23/16] potassium chloride 20 meq PO DAILY 11/23/16 [History Last Taken 11/22/16] amlodipine 10 mg tablet 10 mg PO DAILY #30 tab 11/29/17 [Rx Last Taken Unknown] meloxicam 15 mg PO DAILY 08/04/19 [History Last Taken Unknown] atorvastatin 20 mg PO DAILY 03/05/21 [History Last Taken Unknown] albuterol sulfate 2 puff INHALATION Q4H PRN PRN 07/19/21 [History Last Taken Unknown] amoxicillin-pot clavulanate 875 mg PO Q12H #20 tablet 07/19/21 [Rx Last Taken Unknown] azithromycin See Rx Instructions .ROUTE .COMPLEX #6 tab 07/19/21 [Rx Last Taken Unknown] prednisone 60 mg PO DAILY #15 tablet 07/19/21 [Rx Last Taken Unknown] valsartan-hydrochlorothiazide 1 tab PO DAILY 07/19/21 [History Last Taken Unknown] Allergy/AdvReac Type Severity Reaction Status Date / Time No Known Allergies Allergy Verified 07/19/21 11:48 Family History Father , age 55 Sudden cardiac Heart disease Surgical History Hx of left leg vein ablation (~09/2016) Social History Smoking Status: Never smoker alcohol intake: current alcohol intake frequency: holidays/special occasions only Alcohol type: beer, wine and hard liquor substance use type: does not use caffeine: Yes Type: coffee Number of servings: 3 what type of physical activity do you participate in: none seatbelt use: always do you feel safe at home: Yes ROS ROS ED Constitutional Constitutional ED: Denies chills, fever(s) or weight loss Eyes Eyes: Denies change in vision or diplopia ENT ENT ED: Denies ear pain, rhinorrhea or sore throat Cardiovascular Cardiovascular: Denies chest pain, orthopnea, palpitations or racing heartbeat Respiratory/Chest Respiratory/Chest: Reports cough and dyspnea; Denies orthopnea Gastrointestinal Gastrointestinal: Denies abdominal pain, diarrhea, nausea or vomiting Genitourinary Genitourinary ED: Denies dysuria, hematuria or urinary frequency Musculoskeletal Musculoskeletal: Denies arthralgias or myalgias Integumentary Denies abscess or rash Neurologic Neurologic: Denies headache(s) or weakness Psychiatric Psychiatric: Denies anxiety, depression, suicidal ideation or suicidal thoughts Endocrine Endocrinology: Denies polydipsia, polyphagia or polyuria Allergic/Immunologic Allergic/Immunologic ED: Denies mouth swelling, tongue swelling or urticaria EXAM Physical Exam Const Vital Signs: 07/19/21 11:44 07/19/21 11:57 07/19/21 12:37 Temperature 96.9 F L Temperature Source Temporal Pulse Rate 78 70 Respiratory Rate 24 H 18 Respiratory Effort Short of Breath Respiratory Pattern Tachypnea Normal Blood Pressure 155/75 H Blood Pressure Mean 101 Pulse Ox 95 Oxygen Delivery Method Room Air Positive well nourished, well developed and obese General Appearance ED: well developed Nutritional Appearance: obese HEENT Reports normocephalic, head/scalp atraumatic, TM's clear and moist mucous membranes Negative for trauma Tympanic Membrane ED: Yes TM's clear Eyes PERRL and EOMs intact bilaterally Neck no lymphadenopathy, supple and no JVD Resp normal respiratory effort Auscultation: wheezes expiratory wheezes and diminished lung sounds Cardio regular rate, regular rhythm and no murmurs GI normal to inspection, nondistended, normoactive bowel sounds and non-tender Palpation: soft Back/Spine no CVA tenderness and normal ROM Extremity normal to inspection General Extremety ED: Negative for edema General Extremity: Negative for edema Neuro oriented x3 and CN's II-XII intact bilaterally Sensorium / Orientation: alert Motor Exam: strength 5/5 throughout Psych mental status grossly normal Mood & Affect: Negative for depressed or tearful Skin no rashes or lesions noted and no wounds MDM MDM MDM Narrative Medical decision making narrative: My interpretation of the chest x-ray is early right lower lobe infiltrate. Patient received breathing treatment. She is not hypoxic tachypneic or febrile. Patient clinically appears well. She will be started on Augmentin and azithromycin given her chronic medical conditions. Return if worsening or concerns. She should change out her inhaler to a nonexpired inhaler when she gets at home. Radiography Diagnostic Testing: Clinical Impression(s) from Imaging Studies Chest X-Ray 07/19/21 12:45 IMPRESSION: Findings suggestive of early right lower lobe infiltrate. Electronically Signed: Alan Glasgow MD at 13:08 EST , Discharge Plan Triage Chief Complaint: Shortness of Breath ED Provider: Jose Cruz Baig Dx/Rx/DC Orders Clinical Impression: Pneumonia, Acute dyspnea Instructions: ED Pneumonia (Adult) Prescriptions: New prednisone 20 MG tablet 60 mg PO DAILY Qty: 15 RF: 0 amoxicillin-pot clavulanate [amoxicillin-pot clavulanate] 875 MG tablet 875 mg PO Q12H Qty: 20 RF: 0 azithromycin 250 mg tablet See Rx Instructions .ROUTE .COMPLEX Qty: 6 RF: 0 No Action sertraline 100 MG tablet 100 mg PO QHS RF: 0 metoprolol succinate 25 MG tablet extended release 24 hr 25 mg PO DAILY Qty: 30 RF: 0 potassium chloride 20 MEQ tablet,ER particles/crystals 20 meq PO DAILY RF: 0 meloxicam 15 MG tablet 15 mg PO DAILY RF: 0 atorvastatin 20 MG tablet 20 mg PO DAILY RF: 0 albuterol sulfate 90 mcg/actuation HFA aerosol inhaler 2 puff INHALATION Q4H PRN PRN (Reason: SOB) RF: 0 valsartan-hydrochlorothiazide 320-12.5 mg tablet 1 tab PO DAILY RF: 0 amlodipine 10 mg tablet 10 mg PO DAILY Qty: 30 RF: 11 Primary Care Provider: Dannie Ulloa Referrals: Dannie Ulloa MD [Primary Care Provider] - 1 Week if not improving Disposition Disposition: Home, Self Care
[2021-07-19] MEDS: predniSONE 20 MG Tablet 60 MG PO (12:51)
[2021-07-19 13:58] VITALS: PULSE 71; RESP 18; O2SAT 100
== END 2021-07-19 13:58 | disposition home or self-care (01) ==
PROVIDERS: Emergency Provider Emergency Medicine; PCP Internal Medicine; Visit Provider Emergency Medicine
DX: J18.9 Pneumonia, unspecified organism (principal); I10 Essential (primary) hypertension; Z20.822 Contact with and (suspected) exposure to COVID-19; E78.5 Hyperlipidemia, unspecified; Z79.899 Other long term (current) drug therapy; Z79.1 Long term (current) use of non-steroidal anti-inflammatories (NSAID); E66.9 Obesity, unspecified
CPT/HCPCS: 71045; 87426; 94640; 99283

== ENCOUNTER 2021-08-08 13:24 | Emergency (ER) | payer MEDICAID, SELFPAY ==
[2021-08-08 13:25] VITALS: BP 175/89; PULSE 83; RESP 22; TEMP 35.7; O2SAT 96; BMI 40.4
[2021-08-08 13:34] VITALS: O2SAT 97
--- NOTE | 2021-08-08 13:51 | ED.VIS.DYS ---
HPI History of Present Illness Chief Complaint: Shortness of Breath Informant: patient Onset/Context/Timing Onset: Days (4-5) Context: gradual Timing: Continuous Quality: Positive for Dyspnea on exertion and Wheezing Worsened by: Exertion Relieved by: Nothing Associated Symptoms cough, subjective, chills and sweats; Negative for rhinorrhea, ear pain, sore throat, clear sputum, white sputum, yellow sputum or green sputum Chest Pain: Positive for None Narrative Narrative: Patient presents with shortness of breath that has been getting worse over the past 4 to 5 days. Patient states she was recently treated for pneumonia. Patient states she finished her antibiotics for this. Patient states she feels like she was wheezing. Patient states it is worse with any exertion. Patient admits to a cough that just started today. Patient denies any sputum production. Patient admits to subjective chills and sweats. Patient denies any chest pain. Patient denies any sore throat or rhinorrhea. PE Risk Factors: Negative for Cancer, OCP + Smoking + > 35, Prior DVT or PE, Recent immobilization, Recent surgery and Recent travel [facility] Medical History (Updated 08/08/21 @ 16:[address] Bahman Roque, ) Abnormal electrocardiogram Chest pain, unspecified HLD (hyperlipidemia) HTN (hypertension) Hypokalemia Nonsustained ventricular tachycardia Syncope and collapse Home Medications sertraline 100 mg PO QHS 12/24/14 [History Last Taken 11/20/16] metoprolol succinate 25 mg PO DAILY #30 tab.er.24h 11/07/16 [Rx Last Taken 11/23/16] potassium chloride 20 meq PO DAILY 11/23/16 [History Last Taken 11/22/16] amlodipine 10 mg tablet 10 mg PO DAILY #30 tab 11/29/17 [Rx Last Taken Unknown] meloxicam 15 mg PO DAILY 08/04/19 [History Last Taken Unknown] atorvastatin 20 mg PO DAILY 03/05/21 [History Last Taken Unknown] albuterol sulfate 2 puff INHALATION Q4H PRN PRN 07/19/21 [History Last Taken Unknown] amoxicillin-pot clavulanate 875 mg PO Q12H #20 tablet 07/19/21 [Rx Last Taken Unknown] azithromycin See Rx Instructions .ROUTE .COMPLEX #6 tab 07/19/21 [Rx Last Taken Unknown] prednisone 60 mg PO DAILY #15 tablet 07/19/21 [Rx Last Taken Unknown] valsartan-hydrochlorothiazide 1 tab PO DAILY 07/19/21 [History Last Taken Unknown] Allergy/AdvReac Type Severity Reaction Status Date / Time No Known Allergies Allergy Verified 08/08/21 13:25 Family History Father , age 55 Sudden cardiac Heart disease Surgical History Hx of left leg vein ablation (~09/2016) Social History Smoking Status: Never smoker alcohol intake: current alcohol intake frequency: holidays/special occasions only Alcohol type: beer, wine and hard liquor substance use type: does not use caffeine: Yes Type: coffee Number of servings: 3 what type of physical activity do you participate in: none seatbelt use: always do you feel safe at home: Yes ROS ROS ED Constitutional Constitutional ED: Reports chills and sweats; Denies fever(s) Eyes Eyes: Denies blurry vision or change in vision ENT ENT ED: Denies rhinorrhea or sore throat Cardiovascular Cardiovascular: Denies chest pain or palpitations Respiratory/Chest Respiratory/Chest: Reports cough and dyspnea Gastrointestinal Gastrointestinal: Denies nausea or vomiting Genitourinary Genitourinary ED: Denies dysuria or hematuria Musculoskeletal Musculoskeletal: Reports back pain and neck pain Integumentary Denies abscess or rash Neurologic Neurologic: Reports headache(s); Denies weakness Allergic/Immunologic Allergic/Immunologic ED: Denies mouth swelling or urticaria EXAM Physical Exam Const Vital Signs: 08/08/21 13:25 08/08/21 13:34 08/08/21 14:14 Temperature 96.3 F L Temperature Source Temporal Pulse Rate 83 99 Respiratory Rate 22 H 19 H Respiratory Effort Short of Breath Respiratory Depth Normal Respiratory Pattern Normal Normal Blood Pressure 175/89 H Blood Pressure Mean 117 Pulse Ox 96 97 Oxygen Delivery Method Room Air Room Air Positive well nourished and well developed General Appearance ED: well developed and NAD HEENT Reports moist mucous membranes Neck supple and no JVD Resp normal respiratory effort Auscultation: wheezes Cardio regular rate and regular rhythm GI non-tender and non-distended Auscultation: normoactive bowel sounds Palpation: soft Neuro oriented x3, CN's II-XII intact bilaterally and no sensory deficits noted Sensorium / Orientation: alert Motor Exam: strength 5/5 throughout Psych mental status grossly normal MDM MDM MDM Narrative Medical decision making narrative: Patient was given a DuoNeb aerosol here. CBC was within normal limits. PT with INR and PTT were normal. D-dimer was normal. Comprehensive metabolic profile was obtained and was within normal limits. Portable 1 view chest x-ray was obtained. On my interpretation, lung mccallum are clear. There is normal cardiac silhouette. Bony thorax is normal. There is no acute process noted. Radiologist also interpreted the x-ray and agrees. Influenza A and influenza B swabs were obtained and were negative. COVID-19 rapid antigen was obtained and was negative. Patient was feeling somewhat better on reevaluation. Patient was given a repeat albuterol aerosol here. Patient was instructed to continue her inhalers as prescribed. Patient states she has an appoint with her primary care physician tomorrow. Patient was instructed to follow-up with this appointment. Patient understood and was agreeable with the plan. All questions were answered. Lab Data Attestation: I reviewed the patient's lab results. Labs: Laboratory Results - last 24 hr 08/08/21 08/08/21 08/08/21 14:08 14:08 14:08 WBC 5.8 RBC 4.59 Hgb 14.1 Hct 41.5 MCV 90.4 MCH 30.7 MCHC 34.0 RDW Std Deviation 48.4 H RDW Coeff of Cathy 14.6 Plt Count 226 MPV 9.7 Immature Gran % (Auto) 0.500 Neut % (Auto) 65.1 Lymph % (Auto) 18.9 L [place] % (Auto) 8.2 Eos % (Auto) 6.6 H Baso % (Auto) 0.7 Absolute Neuts (auto) 3.8 Absolute Lymphs (auto) 1.09 Nucleated RBC % 0 PT 12.7 INR 1.0 APTT 25.8 D-Dimer Quant (PE/DVT) 0.44 Sodium 139 Potassium 3.3 L Chloride 105 Carbon Dioxide 30.0 Anion Gap 4 L BUN 18 Creatinine 0.80 Estim Creat Clear Calc 72.61 Est GFR (MDRD) Af Amer 94 Est GFR (MDRD) Non-Af 77 BUN/Creatinine Ratio 22.6 H Glucose 104 Calcium 8.8 Total Bilirubin 0.40 AST 14 L ALT 30 Alkaline Phosphatase 92 Troponin I High Sens 11 Total Protein 6.9 Albumin 3.3 Globulin 3.6 Albumin/Globulin Ratio 0.9 Radiography Chest X-Ray - ED: 1 View, Read by ED Physician, Read by Radiologist, Normal and No Acute Disease Diagnostic Testing: Clinical Impression(s) from Imaging Studies Chest X-Ray 08/08/21 13:56 IMPRESSION: No acute findings. Electronically Signed: Damian Morales, at 14:18 EDT , Discharge Plan Triage Chief Complaint: Shortness of Breath ED Provider: Bahman Roque Dx/Rx/DC Orders Clinical Impression: Dyspnea Instructions: ED Dyspnea Prescriptions: No Action sertraline 100 MG tablet 100 mg PO QHS RF: 0 metoprolol succinate 25 MG tablet extended release 24 hr 25 mg PO DAILY Qty: 30 RF: 0 potassium chloride 20 MEQ tablet,ER particles/crystals 20 meq PO DAILY RF: 0 meloxicam 15 MG tablet 15 mg PO DAILY RF: 0 atorvastatin 20 MG tablet 20 mg PO DAILY RF: 0 albuterol sulfate 90 mcg/actuation HFA aerosol inhaler 2 puff INHALATION Q4H PRN PRN (Reason: SOB) RF: 0 valsartan-hydrochlorothiazide 320-12.5 mg tablet 1 tab PO DAILY RF: 0 prednisone 20 MG tablet 60 mg PO DAILY Qty: 15 RF: 0 amoxicillin-pot clavulanate [amoxicillin-pot clavulanate] 875 MG tablet 875 mg PO Q12H Qty: 20 RF: 0 azithromycin 250 mg tablet See Rx Instructions .ROUTE .COMPLEX Qty: 6 RF: 0 amlodipine 10 mg tablet 10 mg PO DAILY Qty: 30 RF: 11 Primary Care Provider: Dannie Ulloa Referrals: Dannie Ulloa MD [Primary Care Provider] - Keep [facility] appointment Disposition Disposition: Home, Self Care
--- NOTE | 2021-08-08 13:56 | RAD_ITS ---
INDICATION: Cough EXAMINATION/TECHNIQUE: X-RAY - XR Chest 1 View COMPARISON: Chest radiograph from 07/19/2021 FINDINGS: Support devices: None. Aeration of lungs unchanged with no focal consolidations, effusions, or sizable pneumothorax. Heart size is stable. Bones and soft tissues are unchanged. RAD/Chest 1 View (Portable) IMPRESSION: No acute findings. Electronically Signed: Damian Morales, at 14:18 EDT ,
[2021-08-08] MEDS: Ipratropium/Albuterol Sulfate 3 ML AMPUL.NEB INHALATION (14:06)
[2021-08-08 14:14] VITALS: PULSE 99; RESP 19
[2021-08-08 14:21] LABS: Absolute Lymphocyte Count 1.09 X10^3/uL (0.83-4.51); Absolute Neutrophil Count 3.8 X10^3/uL (2.0-7.7); Basophil# 0.04 X10^3/uL; Basophil% 0.7 % (0-1); Eosinophil# 0.38 X10^3/uL; Eosinophils% 6.6 % (0-5); Hematocrit 41.5 % (37-47); Hemoglobin 14.1 g/dL (12.0-15.0); Lymphocyte # 1.09 X10^3/ul (0.83-4.51); Lymphocyte % 18.9 % (19-41); Mean Corpuscular Hgb 30.7 pg (27.0-32.0); Mean Corpuscular Volume 90.4 fL (81-99); Mean Platelet Vol. 9.7 fl (6.2-12.0); Monocyte# 0.47 X10^3/uL; Monocyte% 8.2 % (0-10); NRBC Flagged by Analyzer 0 % (0-5); Neutrophil # 3.75 X10^3/uL (2.7-7.7); Neutrophil % 65.1 % (47-70); Platelet Count 226 K/mm3 (150-450); RBC Distribution Width CV 14.6 % (11.6-14.6); RBC Distribution Width SD 48.4 fl (35.1-43.9); Red Blood Count 4.59 M/mm3 (4.2-5.4); White Blood Count 5.8 K/mm3 (4.4-11.0)
[2021-08-08 14:31] LABS: D-Dimer Quantitative (DVT/PE) 0.44 FEU/ug/m (0.27-0.49)
[2021-08-08 14:39] LABS: ALB/GLOB Ratio 0.9 RATIO (0.9-2.4); AST(SGOT) 14 U/L (15-37); Alanine Aminotransfer ALT/SGPT 30 U/L (13-56); Albumin, Serum 3.3 g/dL (3.2-5.0); Alkaline Phosphatase 92 U/L (45-117); Anion Gap 4 (5-15); BUN 18 mg/dL (7-18); BUN/Creat Ratio 22.6 RATIO (10-20); Calcium,Total 8.8 mg/dL (8.5-10.1); Chloride 105 mmol/L (98-107); EST Glomerular Filtration Rate 77 mL/min (>60); Est Glom Filt Rate - Afr Amer 94 mL/min (>60); Estimated Creatinine Clearance 72.61 ml/min; Globulin 3.6 g/dL (2.2-4.2); Glucose 104 mg/dL (74-106); Potassium 3.3 mmol/L (3.5-5.1); Protein, Total 6.9 g/dL (6.4-8.2); Sodium Level 139 mmol/L (136-145); Troponin-I HS 11 pg/mL (3.0-54.0)
[2021-08-08 14:45] LABS: Partial Thromboplast Time 25.8 Seconds (24.1-36.2); Prothrombin Time (Protime)PT. 12.7 SECONDS (11.7-14.9)
[2021-08-08 16:34] VITALS: PULSE 65; RESP 18
[2021-08-08] MEDS: Albuterol 2.5 MG/3 ML VIAL.NEB. INHALATION (16:34)
== END 2021-08-08 16:42 | disposition home or self-care (01) ==
PROVIDERS: Emergency Provider Emergency Medicine; PCP Internal Medicine; Visit Provider Emergency Medicine
DX: R06.00 Dyspnea, unspecified (principal); I10 Essential (primary) hypertension; E78.5 Hyperlipidemia, unspecified; M54.9 Dorsalgia, unspecified; M54.2 Cervicalgia; Z20.822 Contact with and (suspected) exposure to COVID-19; Z87.01 Personal history of pneumonia (recurrent); Z79.899 Other long term (current) drug therapy
CPT/HCPCS: 71045; 80053; 84484; 85025; 85379; 85610; 85730; 87804; 87811; 94640; 99284; A4216

== ENCOUNTER 2021-08-13 14:51 | Emergency (ER) | payer MEDICAID, SELFPAY ==
[2021-08-13 14:52] VITALS: BP 154/77; PULSE 64; RESP 17; TEMP 36.7; O2SAT 93; BMI 40.5
[2021-08-13 14:56] VITALS: O2SAT 94
--- NOTE | 2021-08-13 15:09 | RAD_ITS ---
STUDY: X-RAY CHEST REASON FOR EXAM: Female, 61 years old. chest pain TECHNIQUE: Single AP portable view of the chest. COMPARISON: 08/08/2021 FINDINGS: The lungs are clear and expanded. There is no demonstrated pleural abnormality. There is moderate cardiac enlargement. Normal mediastinum and jones. Normal visualized pulmonary arteries. Normal visualized aortic arch and descending thoracic aorta. Normal visualized thoracic spine. Normal visualized ribs, clavicles, and shoulders. There is no demonstrated abnormality of the visualized soft tissue structures of the upper abdomen. RAD/Chest 1 View (Portable) IMPRESSION: No active disease. Electronically Signed: Gonzalez Carrillo MD at 16:08 EDT ,
--- NOTE | 2021-08-13 15:09 | EKG12_ITS ---
Test Reason : SOB Blood Pressure : / mmHG Vent. Rate : 065 BPM Atrial Rate : 065 BPM P-R Int : 146 ms QRS Dur : 084 ms QT Int : 414 ms P-R-T Axes : 041 -03 003 degrees QTc Int : 430 ms Normal sinus rhythm Normal ECG Confirmed by NAZ BETHEA, SURY ([id number]), associate editor TAYLOR OAKLEY ([id number]) on 08/17/2021 9:20:44 AM Referred By: CYNDY Confirmed By:SURY CHILDS MD
--- NOTE | 2021-08-13 15:10 | EDS_ITS ---
HPI History of Present Illness Chief Complaint: Shortness of Breath Narrative Narrative: 61-year-old female presenting with shortness of breath. She states yesterday she started having some dyspnea and felt like she sounded like a freight train. She states she is doing breathing treatments at home and she has nebulizers although she has no history of COPD or asthma. Patient is unsure if she has seasonal allergies. Has not had fever, chills, body aches. She states that when she is coughing she has trouble breathing. Patient did a breathing treatment prior to coming to the emergency room. Patient is describing some intermittent chest tightness across the top of her chest and more to the right. Does not like pressure or squeezing. Patient states that she had this problem since June and has been seeing her primary care physician who has referred her to pulmonology although she is awaiting her first visit. Patient denies any leg swelling. She has no calf pain. Patient has no history of DVT/PE. Patient does have a history of hypertension, hyperlipidemia, TIA, MAIA. She denies history of MRI. She denies history of smoking, COPD, asthma. [facility] Medical History Abnormal electrocardiogram Chest pain, unspecified HLD (hyperlipidemia) HTN (hypertension) Hypokalemia Nonsustained ventricular tachycardia Syncope and collapse Home Medications sertraline 100 mg PO QHS 12/24/14 [History Last Taken 11/20/16] metoprolol succinate 25 mg PO DAILY #30 tab.er.24h 11/07/16 [Rx Last Taken 11/23/16] potassium chloride 20 meq PO DAILY 11/23/16 [History Last Taken 11/22/16] amlodipine 10 mg tablet 10 mg PO DAILY #30 tab 11/29/17 [Rx Last Taken Unknown] meloxicam 15 mg PO DAILY 08/04/19 [History Last Taken Unknown] atorvastatin 20 mg PO DAILY 03/05/21 [History Last Taken Unknown] albuterol sulfate 2 puff INHALATION Q4H PRN PRN 07/19/21 [History Last Taken Unknown] amoxicillin-pot clavulanate 875 mg PO Q12H #20 tablet 07/19/21 [Rx Last Taken Unknown] azithromycin See Rx Instructions .ROUTE .COMPLEX #6 tab 07/19/21 [Rx Last Taken Unknown] prednisone 60 mg PO DAILY #15 tablet 07/19/21 [Rx Last Taken Unknown] valsartan-hydrochlorothiazide 1 tab PO DAILY 07/19/21 [History Last Taken Unknown] prednisone 50 mg PO DAILY #5 tab 08/13/21 [Rx Last Taken Unknown] Allergy/AdvReac Type Severity Reaction Status Date / Time No Known Allergies Allergy Verified 08/13/21 14:55 Family History Father , age 55 Sudden cardiac Heart disease Surgical History Hx of left leg vein ablation (~09/2016) Social History Smoking Status: Never smoker alcohol intake: current alcohol intake frequency: holidays/special occasions only Alcohol type: beer, wine and hard liquor substance use type: does not use caffeine: Yes Type: coffee Number of servings: 3 what type of physical activity do you participate in: none seatbelt use: always do you feel safe at home: Yes ROS ROS ED Constitutional Constitutional ED: Denies chills or fever(s) Eyes Eyes: Denies blurry vision or diplopia ENT ENT ED: Denies rhinorrhea or sore throat Cardiovascular Cardiovascular: Denies chest pain, orthopnea or palpitations Respiratory/Chest Respiratory/Chest: Reports cough, dyspnea and dyspnea on exertion; Denies orthopnea Gastrointestinal Gastrointestinal: Denies abdominal pain, nausea or vomiting Genitourinary Genitourinary ED: Denies dysuria or hematuria Musculoskeletal Musculoskeletal: Denies arthralgias, back pain, myalgias or neck pain Integumentary Denies rash Neurologic Neurologic: Denies headache(s), paresthesias or weakness Psychiatric Psychiatric: Denies anxiety or depression EXAM Physical Exam Const Vital Signs: 08/13/21 14:52 08/13/21 14:56 08/13/21 15:26 Temperature 98.0 F Temperature Source Oral Pulse Rate 64 65 Respiratory Rate 17 16 Respiratory Effort Normal Non-Labored Respiratory Depth Normal Respiratory Pattern Normal Blood Pressure 154/77 H Blood Pressure Mean 102 Pulse Ox 93 Oxygen Delivery Method Room Air Room Air 08/13/21 15:33 08/13/21 16:42 08/13/21 18:39 Temperature Temperature Source Pulse Rate 72 87 Respiratory Rate 22 H 28 H Respiratory Effort Respiratory Depth Respiratory Pattern Blood Pressure 143/75 H 138/83 H Blood Pressure Mean 97 101 Pulse Ox 92 92 Oxygen Delivery Method Room Air Room Air Room Air Positive well nourished and obese General Appearance ED: NAD; Negative for pallor Nutritional Appearance: obese HEENT Reports moist mucous membranes atraumatic Eyes EOMs intact bilaterally General Eye ED: Negative for pale conjunctiva or scleral icterus Neck no lymphadenopathy and supple Resp normal respiratory effort Auscultation: wheezes expiratory wheezes (Faint) Cardio regular rate and regular rhythm GI non-tender Palpation: soft Extremity normal to inspection General Extremety ED: Negative for edema or tenderness General Extremity: Negative for edema Neuro oriented x3, CN's II-XII intact bilaterally and no sensory deficits noted Sensorium / Orientation: alert Motor Exam: strength 5/5 throughout Psych mental status grossly normal Thought Process: normal thought process Skin General Skin Exam: Negative for jaundice or pallor MDM MDM MDM Narrative Medical decision making narrative: Patient presented with shortness of breath which is not a new issue for her. She has been using albuterol at home and states she still has a cough. On examination she is wheezing very mildly. She is not hypoxic, tachypneic, tachycardic. I did order her breathing treatments and Solu-Medrol and blood work was obtained. CBC and BMP within normal limits with exception of a potassium of 3.2. High-sensitivity troponin is 8. BNP within normal limits. D-dimer is negative. Chest x-ray my interpretation shows no acute cardiopulmonary process and the radiologist does agree. EKG on my interpretation is normal sinus rhythm with a ventricular rate of 65 bpm without sign of ischemic change or dysrhythmia. Delta troponin is 9 and therefore there is no significant interval change. I feel at this point patient is safe to be discharged home especially since she feels better after breathing treatments and Solu-Medrol. I will put her on a burst of prednisone and she will use her albuterol inhaler as needed. She is counseled to follow-up with her pulmonology appointment is upcoming. If she has any new or worsening symptoms she can return to the emergency room. Impression: 1. Bronchitis with wheezing Lab Data Attestation: I reviewed the patient's lab results. Labs: Laboratory Results - last 24 hr 08/13/21 08/13/21 08/13/21 15:25 15:25 15:25 WBC 6.4 RBC 4.49 Hgb 13.8 Hct 41.2 MCV 91.8 MCH 30.7 MCHC 33.5 RDW Std Deviation 50.0 H RDW Coeff of Cathy 14.9 H Plt Count 257 MPV 10.2 Immature Gran % (Auto) 0.300 Neut % (Auto) 59.6 Lymph % (Auto) 19.8 [place] % (Auto) 10.3 H Eos % (Auto) 9.5 H Baso % (Auto) 0.5 Absolute Neuts (auto) 3.8 Absolute Lymphs (auto) 1.27 Nucleated RBC % 0 D-Dimer Quant (PE/DVT) 0.33 Sodium 141 Potassium 3.2 L Chloride 107 Carbon Dioxide 27.0 Anion Gap 7 BUN 16 Creatinine 0.90 Estim Creat Clear Calc 64.54 Est GFR (MDRD) Af Amer 81 Est GFR (MDRD) Non-Af 67 BUN/Creatinine Ratio 17.8 Glucose 97 Calcium 9.1 Troponin I High Sens 8 B-Natriuretic Peptide 08/13/21 08/13/21 15:25 17:09 WBC RBC Hgb Hct MCV MCH MCHC RDW Std Deviation RDW Coeff of Cathy Plt Count MPV Immature Gran % (Auto) Neut % (Auto) Lymph % (Auto) [place] % (Auto) Eos % (Auto) Baso % (Auto) Absolute Neuts (auto) Absolute Lymphs (auto) Nucleated RBC % D-Dimer Quant (PE/DVT) Sodium Potassium Chloride Carbon Dioxide Anion Gap BUN Creatinine Estim Creat Clear Calc Est GFR (MDRD) Af Amer Est GFR (MDRD) Non-Af BUN/Creatinine Ratio Glucose Calcium Troponin I High Sens 9 B-Natriuretic Peptide 27.5 Radiography Diagnostic Testing: Clinical Impression(s) from Imaging Studies Chest X-Ray 08/13/21 15:09 IMPRESSION: No active disease. Electronically Signed: Gonzalez Carrillo MD at 16:08 EDT , Discharge Plan Triage Chief Complaint: Shortness of Breath ED Provider: Toro Cavazos Dx/Rx/DC Orders Instructions: ED Bronchitis with Wheezing (Adult) Prescriptions: New prednisone 50 mg tablet 50 mg PO DAILY Qty: 5 RF: 0 No Action sertraline 100 MG tablet 100 mg PO QHS RF: 0 metoprolol succinate 25 MG tablet extended release 24 hr 25 mg PO DAILY Qty: 30 RF: 0 potassium chloride 20 MEQ tablet,ER particles/crystals 20 meq PO DAILY RF: 0 meloxicam 15 MG tablet 15 mg PO DAILY RF: 0 atorvastatin 20 MG tablet 20 mg PO DAILY RF: 0 albuterol sulfate 90 mcg/actuation HFA aerosol inhaler 2 puff INHALATION Q4H PRN PRN (Reason: SOB) RF: 0 valsartan-hydrochlorothiazide 320-12.5 mg tablet 1 tab PO DAILY RF: 0 prednisone 20 MG tablet 60 mg PO DAILY Qty: 15 RF: 0 amoxicillin-pot clavulanate [amoxicillin-pot clavulanate] 875 MG tablet 875 mg PO Q12H Qty: 20 RF: 0 azithromycin 250 mg tablet See Rx Instructions .ROUTE .COMPLEX Qty: 6 RF: 0 amlodipine 10 mg tablet 10 mg PO DAILY Qty: 30 RF: 11 Primary Care Provider: Dannie Ulloa Referrals: Dannie Ulloa MD [Primary Care Provider] - Disposition Disposition: Home, Self Care Discharge Date/Time: 08/13/21 18:45
[2021-08-13 15:26] VITALS: PULSE 65; RESP 16
[2021-08-13] MEDS: Ipratropium/Albuterol Sulfate 3 ML AMPUL.NEB INHALATION (15:26)
[2021-08-13] MEDS: Albuterol 2.5 MG/3 ML VIAL.NEB. INHALATION (15:26)
[2021-08-13 15:31] LABS: Absolute Lymphocyte Count 1.27 X10^3/uL (0.83-4.51); Absolute Neutrophil Count 3.8 X10^3/uL (2.0-7.7); Basophil# 0.03 X10^3/uL; Basophil% 0.5 % (0-1); Eosinophil# 0.61 X10^3/uL; Eosinophils% 9.5 % (0-5); Hematocrit 41.2 % (37-47); Hemoglobin 13.8 g/dL (12.0-15.0); Lymphocyte # 1.27 X10^3/ul (0.83-4.51); Lymphocyte % 19.8 % (19-41); Mean Corp Hgb Conc 33.5 g/dL (32-36); Mean Corpuscular Hgb 30.7 pg (27.0-32.0); Mean Corpuscular Volume 91.8 fL (81-99); Mean Platelet Vol. 10.2 fl (6.2-12.0); Monocyte# 0.66 X10^3/uL; Monocyte% 10.3 % (0-10); NRBC Flagged by Analyzer 0 % (0-5); Neutrophil # 3.81 X10^3/uL (2.7-7.7); Neutrophil % 59.6 % (47-70); Platelet Count 257 K/mm3 (150-450); RBC Distribution Width CV 14.9 % (11.6-14.6); Red Blood Count 4.49 M/mm3 (4.2-5.4); White Blood Count 6.4 K/mm3 (4.4-11.0)
[2021-08-13] MEDS: MethylPREDNISolone 125 MG/2 ML Vial IV (15:35)
[2021-08-13] MEDS: Aspirin 81 MG TAB.CHEW 324 MG PO (15:35)
[2021-08-13 15:44] LABS: D-Dimer Quantitative (DVT/PE) 0.33 FEU/ug/m (0.27-0.49)
[2021-08-13 15:46] LABS: BNP,B-Type NATRIURETIC PEPTIDE 27.5 pg/mL (0-100)
[2021-08-13 15:49] LABS: Anion Gap 7 (5-15); BUN 16 mg/dL (7-18); BUN/Creat Ratio 17.8 RATIO (10-20); Calcium,Total 9.1 mg/dL (8.5-10.1); Chloride 107 mmol/L (98-107); EST Glomerular Filtration Rate 67 mL/min (>60); Est Glom Filt Rate - Afr Amer 81 mL/min (>60); Estimated Creatinine Clearance 64.54 ml/min; Glucose 97 mg/dL (74-106); Potassium 3.2 mmol/L (3.5-5.1); Sodium Level 141 mmol/L (136-145); Troponin-I HS 8 pg/mL (3.0-54.0)
[2021-08-13 16:42] VITALS: BP 143/75; PULSE 72; RESP 22; O2SAT 92
[2021-08-13 17:38] LABS: Troponin-I HS 9 pg/mL (3.0-54.0)
[2021-08-13 18:39] VITALS: BP 138/83; PULSE 87; RESP 28; O2SAT 91; O2SAT 92
== END 2021-08-13 18:45 | disposition home or self-care (01) ==
PROVIDERS: Emergency Provider Student in an Organized Health Care Education/Training Program; PCP Internal Medicine; Visit Provider Student in an Organized Health Care Education/Training Program
DX: J40 Bronchitis, not specified as acute or chronic (principal); R06.2 Wheezing; I10 Essential (primary) hypertension; E78.5 Hyperlipidemia, unspecified; Z79.52 Long term (current) use of systemic steroids; Z79.1 Long term (current) use of non-steroidal anti-inflammatories (NSAID); Z86.73 Personal history of transient ischemic attack (TIA), and cerebral infarction without residual deficits; G47.33 Obstructive sleep apnea (adult) (pediatric)
CPT/HCPCS: 71045; 80048; 83880; 84484; 85025; 85379; 93005; 94640; 96374; 99285; A4216

== ENCOUNTER 2022-12-20 14:06 | Emergency (ER) | payer MEDICAID, SELFPAY ==
[2022-12-20 14:07] VITALS: BP 144/85; PULSE 73; RESP 18; TEMP 36.6; O2SAT 96
--- NOTE | 2022-12-20 15:49 | VDLE_ITS ---
Reason For Study: Left leg swelling Procedure LEFT This is a venous duplex using B-mode, color GSV is normal. flow and spectral Doppler. CFV is compressible, spontaneous, phasic, Exam performed in department. competent, and demonstrates normal A preliminary report was called and/or faxed augmentation. to Dr. Robbins. FV is compressible, spontaneous, phasic, competent and demonstrates normal augmentation. POP V is compressible, spontaneous, phasic, competent and demonstrates normal augmentation. T/P Trunk is compressible. PTV is compressible. LT PerV is compressible. VL/Venous Duplex US, Unilateral Interpretation Summary Deep veins of the left lower extremity are patent and compressible segmentally. There is no evidence of left lower extremity deep vein thrombosis. The left great saphenous vein chuckie ears patent and compressible segmentally. Ordering Physician: Haroldo Robbins Referring Physician: Dannie Ulloa M.D. Performed By: Siria Underwood RCS
--- NOTE | 2022-12-20 15:50 | RAD_ITS ---
STUDY: X-RAY - LEFT KNEE REASON FOR EXAM: Female, 62 years old. Injury/Pain TECHNIQUE: 4 view(s) of the knee. COMPARISON: None. FINDINGS: Normal visualized distal femur. Normal visualized proximal tibia and fibula. Normal proximal tibiofibular articulation. There is no demonstrated fracture. There is moderate degenerative arthrosis of the medial femorotibial compartment with moderate joint space narrowing. Normal lateral femorotibial compartment. There is severe degenerative arthrosis of the patellofemoral articulation. There is a soft tissue prominence in the suprapatellar region suggesting a small volume joint effusion. The soft tissue structures are unremarkable. RAD/Knee 4 or More Views IMPRESSION: No acute fracture or dislocation. Degenerative changes. Small effusion. Electronically Signed: Darian Duron MD at 16:27 EDT ,
--- NOTE | 2022-12-20 15:51 | EX.ED.DYSGE1 ---
HPI History of Present Illness Chief Complaint: Shortness of Breath Informant: patient Onset/Context/Timing Onset: Today (Calf pain and swelling) and Days (Swelling of knee after twisting mechanism injury) Context: Sudden Onset Timing: Continuous Quality: Pain Location: Anterior left knee and left calf Current Severity: Mild Maximum Severity: Moderate Worsened by: Palpation Relieved by: Nothing Associated Symptoms Associated Symptoms: None thing for baseline Narrative Narrative: Patient is a 62-year-old woman with type 2 diabetes, hypertension, hyperlipidemia who went to urgent care and was sent here because of concern for DVT. There is swelling of the left lower extremity. There is pain palpation along the distribution deep venous system. She believes her shortness of breath was due to walking and because she has asthma and the weather. She denies fever, chills night sweats. She denies URI symptoms. She presently denies shortness of breath. Denies pleuritic chest pain. She denies history of PE or DVT. She had no recent surgery, immobilization or long distance trip. She denies headache, visual, ocular auditory symptoms. She denies orthopnea or PND. She does report increased urination. Denies dysuria or hematuria. She reports compliance with her medication. She denies vaginal bleeding. Prior similar symptoms: No Recent Illness/Hospitalization: No [facility] Medical History (Updated 12/20/22 @ 16:[address] Haroldo Robbins MD) Abnormal electrocardiogram Chest pain, unspecified HLD (hyperlipidemia) HTN (hypertension) Hypokalemia Nonsustained ventricular tachycardia Syncope and collapse Home Medications sertraline 100 mg tablet 100 mg PO QHS 12/24/14 [History Last Taken 11/20/16] metoprolol succinate 25 mg tablet,extended release 24 hr 25 mg PO DAILY ##30 11/07/16 [Rx Last Taken 11/23/16] potassium chloride 20 mEq tablet,extended release(part/cryst) 20 meq PO DAILY 11/23/16 [History Last Taken 11/22/16] amlodipine 10 mg tablet 10 mg PO DAILY #30 tabs 11/29/17 [Rx Last Taken Unknown] meloxicam 15 mg tablet 15 mg PO DAILY 08/04/19 [History Last Taken Unknown] atorvastatin 20 mg tablet 20 mg PO DAILY 03/05/21 [History Last Taken Unknown] albuterol sulfate 90 mcg/actuation aerosol inhaler 2 puff inhalation Q4H PRN PRN SOB 07/19/21 [History Last Taken Unknown] amoxicillin 875 mg-potassium clavulanate 125 mg tablet 875 mg (0.875 x 875-125 mg) PO Q12H #20 TABLETS 07/19/21 [Rx Last Taken Unknown] azithromycin 250 mg tablet See Rx Instructions PO .COMPLEX #6 tabs 07/19/21 [Rx Last Taken Unknown] prednisone 20 mg tablet 60 mg (3 x 20 mg) PO DAILY #15 TABLETS 07/19/21 [Rx Last Taken Unknown] valsartan 320 mg-hydrochlorothiazide 12.5 mg tablet 1 tab PO DAILY 07/19/21 [History Last Taken Unknown] prednisone 50 mg tablet 50 mg PO DAILY #5 tabs 08/13/21 [Rx Last Taken Unknown] Allergy/AdvReac Type Severity Reaction Status Date / Time No Known Allergies Allergy Verified 12/20/22 14:10 Family History Father , age 55 Sudden cardiac Heart disease Surgical History Hx of left leg vein ablation (~09/2016) Social History Smoking Status: Never smoker alcohol intake: current alcohol intake frequency: holidays/special occasions only Alcohol type: beer, wine and hard liquor substance use type: does not use caffeine: Yes Type: coffee Number of servings: 3 what type of physical activity do you participate in: none seatbelt use: always do you feel safe at home: Yes ROS ROS ED Constitutional Constitutional ED: Denies chills, fever(s), subjective, sweats or weight loss Eyes Eyes: Denies blurry vision, change in vision or diplopia ENT ENT ED: Denies ear pain, rhinorrhea or sore throat Cardiovascular Cardiovascular: Denies chest pain, orthopnea, palpitations, paroxysmal nocturnal dyspnea or racing heartbeat Respiratory/Chest Respiratory/Chest: Reports dyspnea; Denies cough, dyspnea on exertion, orthopnea or paroxysmal nocturnal dyspnea Gastrointestinal Gastrointestinal: Denies abdominal pain, constipation, diarrhea, melena, nausea or vomiting Musculoskeletal Musculoskeletal: Denies arthralgias, back pain, myalgias or neck pain Integumentary Denies rash Neurologic Neurologic: Denies paresthesias or weakness Hematologic/Lymphatic Hematologic/Lymphatic: Reports systems reviewed and no addt'l complaints, except as documented EXAM Physical Exam Const Vital Signs: 12/20/22 14:07 Temperature 97.8 F Temperature Source Temporal Pulse Rate 73 Respiratory Rate 18 Blood Pressure 144/85 H Blood Pressure Mean 104 Pulse Ox 96 Oxygen Delivery Method Room Air Positive well nourished, well developed and obese General Appearance ED: well developed, NAD and pallor; Negative for cyanotic or diaphoretic Nutritional Appearance: obese HEENT Reports moist mucous membranes HEENT Narrative: Head is atraumatic normocephalic. Ears normal. Nares patent. Posterior pharynx is normal. Eyes PERRL and EOMs intact bilaterally General Eye ED: Negative for pale conjunctiva or scleral icterus Neck no lymphadenopathy, supple and no JVD Chest Wall inspection of chest normal and palpation of chest normal Resp normal respiratory effort and clear to auscultation bilaterally Cardio regular rate, regular rhythm, S1 normal heart sound, S2 normal heart sound and no murmurs GI normal to inspection, nondistended, normoactive bowel sounds, non-tender, non-distended and no masses; Negative for hepatosplenomegaly Back/Spine no CVA tenderness Thoracic Spine / Upper Back: Negative for thoracic spinal tenderness Lumbar Spine / Lower Back: Negative for lumbar spinal tenderness Extremity Negative for normal to inspection Extremity Narrative: There is swelling and slight discoloration of the left lower extremity. There is pain along distribution deep venous system. Patient also has swelling of the knee anteriorly. The patellas not blottable. There is no obvious effusion. She has minimal joint line tenderness laterally. She has a click with modified Hua's test. Jacklyn's test was negative. No laxity or pain with varus valgus stress testing. General Extremety ED: Negative for edema or tenderness General Extremity: Negative for edema Neuro oriented x3 Sensorium / Orientation: alert Motor Exam: strength 5/5 throughout Psych mental status grossly normal Skin no rashes or lesions noted, no wounds and skin turgor normal General Skin Exam: pallor; Negative for elasticity normal or jaundice MDM MDM MDM Narrative Medical decision making narrative: Because patient's Wells score for DVT is +2 venous duplex study was ordered. Because of the reported twisting mechanism injury with swelling of the knee x-ray was ordered. Suspect patient has a lateral meniscus injury. Radiography Chest X-Ray - ED: Read by ED Physician (4 view x-ray of the knee was independent reviewed interpreted by me at 1620. There is a chronic arthritic changes consistent with degenerative joint disease. There is no fracture noted. There is asymmetry of the joint. There is no effusion appreciated.) Treatment and Re-Evaluation :: Venous duplex study was negative for DVT or Mullins's cyst. The swelling may be due to knee injury. Uncertain why patient has calf pain. She was informed of this. Discharge Plan Triage Chief Complaint: Shortness of Breath ED Provider: Haroldo Robbins Dx/Rx/DC Orders Clinical Impression: Left leg swelling, Pain of left calf, Acute lateral meniscal injury of left knee Instructions: ED Knee Sprain, ED Pain, Acute, Uncertain Cause Prescriptions: No Action sertraline 100 MG tablet 100 mg PO QHS Patient Comments: mental health metoprolol succinate 25 MG tablet extended release 24 hr 25 mg PO DAILY Qty: 30 0RF potassium chloride 20 MEQ tablet,ER particles/crystals 20 meq PO DAILY meloxicam 15 MG tablet 15 mg PO DAILY atorvastatin 20 MG tablet 20 mg PO DAILY Patient Comments: cholesterol albuterol sulfate 90 mcg/actuation HFA aerosol inhaler 2 puff INHALATION Q4H PRN PRN (Reason: SOB) valsartan-hydrochlorothiazide 320-12.5 mg tablet 1 tab PO DAILY Patient Comments: TAKE 1 TABLET BY MOUTH EVERY DAY prednisone 20 MG tablet 60 mg PO DAILY Qty: 15 0RF amoxicillin-pot clavulanate [amoxicillin-pot clavulanate] 875 MG tablet 875 mg PO Q12H Qty: 20 0RF azithromycin 250 mg tablet See Rx Instructions .ROUTE .COMPLEX Qty: 6 0RF Rx Instructions: For 250 mg dose pack: take 500 mg today (day 1), then 250 mg for 4 days (days 2-5) prednisone 50 mg tablet 50 mg PO DAILY Qty: 5 0RF amlodipine 10 mg tablet 10 mg PO DAILY Qty: 30 11RF Patient Comments: blood pressure Primary Care Provider: Dannie Ulloa Referrals: Umair Villagomez MD [Med Staff - Active Staff] - 5-7 Days Dannie Ulloa MD [Primary Care Provider] - Disposition Disposition: Home, Self Care
== END 2022-12-20 16:50 | disposition home or self-care (01) ==
PROVIDERS: Emergency Provider Emergency Medicine; PCP Internal Medicine; Visit Provider Emergency Medicine
DX: M79.89 Other specified soft tissue disorders (principal); E11.9 Type 2 diabetes mellitus without complications; S89.82XA Other specified injuries of left lower leg, initial encounter; X50.1XXA Overexertion from prolonged static or awkward postures, initial encounter; I10 Essential (primary) hypertension; E78.5 Hyperlipidemia, unspecified; J45.909 Unspecified asthma, uncomplicated; E66.9 Obesity, unspecified; Z79.82 Long term (current) use of aspirin; Z79.899 Other long term (current) drug therapy
CPT/HCPCS: 73564; 93971; 99283

== ENCOUNTER 2024-09-16 10:23 | Inpatient (IN) | payer MEDICARE, MEDICAID, SELFPAY ==
[2024-09-16] VITALS (11 sets, daily range): BP systolic 107–125; BP diastolic 76–90; PULSE 81–108; RESP 16–23; TEMP 36.4–36.9; O2SAT 90–98; BMI 38.5; BMI 37.1
--- NOTE | 2024-09-16 11:07 | RAD_ITS ---
PROCEDURE: CHEST 1 VIEW (PORTABLE) 09/16/2024 REASON FOR EXAM: CHEST PAIN TECHNIQUE: Frontal view of the chest. COMPARISON: None available for comparison. FINDINGS: Hardware: EKG electrodes. Heart: Heart size is mildly enlarged. Lungs: Vascular congestion and mild CHF. Bones: Degenerative changes are identified within the thoracic spine. Other: RAD/Chest 1 View (Portable) IMPRESSION: Mild cardiomegaly with vascular congestion and mild CHF. Reading Location: [facility]
--- NOTE | 2024-09-16 11:08 | EX.ED.DYSGE1 ---
HPI History of Present Illness Chief Complaint: Palpitations Informant: patient and EMS Narrative Narrative: 64-year-old female sent from her doctor's office after discovering A-fib which is new for her. She has been having rapid palpitations off-and-on for the past month or more she estimates. She been having frequent episodes of lightheadedness no syncope. No chest pain or dyspnea. No leg edema. States has a history of CHF, no history of CAD that she knows of. She has had no recent medication changes. She has been compliant with her medications although she has not yet taken them this morning, since she usually takes them when she eats and she has not eaten yet. She had a TIA in the past, she takes baby aspirin every day but no anticoagulants or other antiplatelets. [facility] Medical History Asthma Diabetes CHF (congestive heart failure) Osteoarthritis of left knee Left knee pain Syncope and collapse Nonsustained ventricular tachycardia HTN (hypertension) Chest pain, unspecified Abnormal electrocardiogram Hypokalemia HLD (hyperlipidemia) Home Medications ?Medication ?Instructions ?Recorded ?Last Taken ?Type sertraline 100 mg tablet 100 mg PO QHS 12/24/14 09/15/24 History potassium chloride 20 mEq 20 meq PO DAILY 11/23/16 09/15/24 History tablet,extended release(part/cryst) amlodipine 10 mg tablet 10 mg PO DAILY #30 tabs 11/29/17 09/15/24 Rx atorvastatin 20 mg tablet 20 mg PO DAILY 03/05/21 09/15/24 History albuterol sulfate 90 mcg/actuation 2 puff inhalation Q4H PRN SOB 07/19/21 09/15/24 History aerosol inhaler valsartan 320 1 tab PO DAILY 07/19/21 09/15/24 History mg-hydrochlorothiazide 12.5 mg tablet aspirin 81 mg tablet,delayed 81 mg PO DAILY 12/24/22 09/15/24 History release metformin 500 mg tablet 1,000 mg PO BID 12/24/22 09/15/24 History mometasone-formoterol HFA 200 2 inh inhalation BID 12/24/22 09/16/24 History mcg-5 mcg/actuation aerosol inhaler (Dulera) empagliflozin 10 mg tablet 10 mg PO DAILY 09/16/24 09/15/24 History (Jardiance) furosemide 20 mg tablet 20 mg PO DAILY 09/16/24 09/16/24 History metoprolol succinate 50 mg 50 mg PO DAILY 09/16/24 09/15/24 History tablet,extended release 24 hr montelukast 10 mg tablet 10 mg PO DAILY 09/16/24 09/15/24 History rosuvastatin 40 mg tablet 40 mg PO DAILY 09/16/24 09/15/24 History Allergy/AdvReac Type Severity Reaction Status Date / Time No Known Allergies Allergy Verified 12/20/22 14:10 Family History Father , age 55 Sudden cardiac Heart disease Surgical History Hx of left leg vein ablation (~09/2016) Social History Smoking Status: Never smoker alcohol intake: never substance use type: does not use caffeine: Yes Type: coffee Number of servings: 3 what type of physical activity do you participate in: none seatbelt use: always do you feel safe at home: Yes ROS ROS ED Constitutional Constitutional ED: Denies chills or fever(s) Eyes Eyes: Denies change in vision or diplopia ENT ENT ED: Denies rhinorrhea or sore throat Cardiovascular Cardiovascular: Reports lightheadedness, palpitations and racing heartbeat; Denies chest pain or syncope Respiratory/Chest Respiratory/Chest: Denies cough or dyspnea Gastrointestinal Gastrointestinal: Denies abdominal pain, diarrhea, nausea or vomiting Genitourinary Genitourinary ED: Denies dysuria or hematuria Musculoskeletal Musculoskeletal: Denies back pain or neck pain Integumentary Denies abscess or rash Neurologic Neurologic: Denies headache(s), paresthesias or weakness Psychiatric Psychiatric: Denies anxiety or suicidal thoughts EXAM Physical Exam Const Vital Signs: 09/16/24 10:24 09/16/24 10:29 09/16/24 11:08 Temperature 98.4 F Temperature Source Oral Pulse Rate 84 108 H Respiratory Rate 18 16 Blood Pressure 115/90 H 114/84 H Blood Pressure Mean 98 94 Pulse Ox 94 95 Oxygen Delivery Method Room Air Room Air Room Air 09/16/24 11:29 09/16/24 12:00 Temperature Temperature Source Pulse Rate 97 92 Respiratory Rate 16 20 H Blood Pressure 118/76 117/79 Blood Pressure Mean 90 91 Pulse Ox 98 95 Oxygen Delivery Method Room Air Room Air Positive well nourished and well developed General Appearance ED: well developed and NAD HEENT Reports moist mucous membranes normocephalic and atraumatic Eyes PERRL and EOMs intact bilaterally Neck full ROM and supple Resp normal respiratory effort and clear to auscultation bilaterally Cardio Rate: tachycardic Rhythm: abnormal rhythm irregularly irregular GI non-tender and non-distended Auscultation: normoactive bowel sounds Palpation: soft Back/Spine no CVA tenderness General Back: other FROM Extremity normal to inspection General Extremety ED: Negative for edema, pulses abnormal or tenderness General Extremity: Negative for edema or pulses abnormal Neuro oriented x3, CN's II-XII intact bilaterally and no sensory deficits noted Sensorium / Orientation: awake and alert Motor Exam: strength 5/5 throughout Skin no rashes or lesions noted and no wounds MDM MDM MDM Narrative Medical decision making narrative: Patient was given IV fluids because her blood pressure is a little on the low side although in the normal range, but more because she needs rate control for her A-fib which apparently is new. I confirmed that her last EKG shows sinus rhythm and she is in A-fib now. Therefore she was given a dose of IV metoprolol 5 mg in addition to a dose of metoprolol tartrate 50 mg, and the bag of fluids. She got up to go to the bathroom and had a near syncopal episode without having tachycardia or hypotension according to nursing. Her rate is better controlled, but her chest x-ray 1 view appears to show CHF, which she does not have a known history of and there is no prior echocardiogram on record which I look for. Given this I think she would benefit from admission to the hospital further workup, I added a proBNP but I am avoiding giving her more fluids under this circumstance since her vital signs are normal now. History & Record Review Additional record(s) reviewed:: Prior labs (No prior echo) Lab Data Attestation: I reviewed the patient's lab results. Labs: Laboratory Results - last 24 hr 09/16/24 10:30 WBC 7.8 RBC 4.51 Hgb 13.4 Hct 41.8 MCV 92.7 MCH 29.7 MCHC 32.1 RDW Std Deviation 53.1 H RDW Coeff of Cathy 15.7 H Plt Count 331 MPV 10.1 Immature Gran % (Auto) 0.400 Neut % (Auto) 73.5 H Lymph % (Auto) 15.9 L [place] % (Auto) 8.3 Eos % (Auto) 1.3 Baso % (Auto) 0.6 Absolute Neuts (auto) 5.7 Absolute Lymphs (auto) 1.23 Nucleated RBC % 0 Sodium 140 Potassium 3.4 Chloride 103 Carbon Dioxide 21.1 Anion Gap 15 BUN 22 H Creatinine 0.94 Estim Creat Clear Calc 78.35 Est GFR (MDRD) Non-Af 67 BUN/Creatinine Ratio 23.7 H Glucose 108 H Calcium 9.5 Troponin T High Sens 12 Radiography Diagnostic Testing: Clinical Impression(s) from Imaging Studies Chest X-Ray 09/16/24 11:07 IMPRESSION: Mild cardiomegaly with vascular congestion and mild CHF. Reading Location: [place] [address] Rhythm Strip Rhythm Strip: A-fib Rate: 120 Ectopy: None EKG Initial EKG: Attestation: I personally reviewed and interpreted this EKG as follows: Interpretation: No Acute Injury Pattern, Atrial Fibrillation and Non-Specific ST Changes Prior EKG tracings: available for review Prior: Changed (NSR) Management Discussion w/another healthcare provider: Hospitalist Discharge Plan Dx/Rx/DC Orders Clinical Impression: Atrial fibrillation with RVR, Acute CHF, Orthostasis Disposition Disposition: Acute Care Hospital [facility]
[2024-09-16] MEDS: Metoprolol Tartrate 50 MG Tablet PO (11:14)
[2024-09-16] MEDS: Metoprolol Tartrate 5 MG/5 ML Vial IV (11:15)
[2024-09-16] MEDS: 0.9% Normal Saline (500mL Bag) 500 ML 999 ML IV (11:17)
[2024-09-16 11:21] LABS: Absolute Lymphocyte Count 1.23 X10^3/uL (0.83-4.51); Absolute Neutrophil Count 5.7 X10^3/uL (2.0-7.7); Basophil# 0.05 X10^3/uL; Basophil% 0.6 % (0-1); Eosinophils% 1.3 % (0-5); Hematocrit 41.8 % (37-47); Hemoglobin 13.4 g/dL (12.0-15.0); Lymphocyte # 1.23 X10^3/ul (0.83-4.51); Lymphocyte % 15.9 % (19-41); Mean Corp Hgb Conc 32.1 g/dL (32-36); Mean Corpuscular Hgb 29.7 pg (27.0-32.0); Mean Corpuscular Volume 92.7 fL (81-99); Mean Platelet Vol. 10.1 fl (6.2-12.0); Monocyte# 0.64 X10^3/uL; Monocyte% 8.3 % (0-10); NRBC Flagged by Analyzer 0 % (0-5); Neutrophil % 73.5 % (47-70); Platelet Count 331 K/mm3 (150-450); RBC Distribution Width CV 15.7 % (11.6-14.6); RBC Distribution Width SD 53.1 fl (35.1-43.9); Red Blood Count 4.51 M/mm3 (4.2-5.4); White Blood Count 7.8 K/mm3 (4.4-11.0)
[2024-09-16 11:54] LABS: Anion Gap 15 (5-15); BUN 22 mg/dL (4-19); BUN/Creat Ratio 23.7 RATIO (10-20); Calcium,Total 9.5 mg/dL (7.6-11.0); Carbon Dioxide 21.1 mmol/L (21.0-32.0); Chloride 103 mmol/L (98-108); Creatinine, Serum 0.94 mg/dL (0.70-1.20); EST Glomerular Filtration Rate 67 (>60); Estimated Creatinine Clearance 78.35 ml/min (50-250); Glucose 108 mg/dL (70-99); Potassium 3.4 mmol/L (3.3-5.1); Sodium Level 140 mmol/L (133-145); Troponin T High Sensitivity 12 ng/L (<=14)
[2024-09-16 13:29] LABS: Troponin T High Sens 2 HR 11 ng/L (<=14)
[2024-09-16 13:35] LABS: Pro- Brain NATRIURETIC PEPTIDE 1365 pg/mL (<=900)
--- NOTE | 2024-09-16 13:36 | PCM.HP.STD ---
HPI - General General Date of Admission: 09/16/24 Date of Service: 09/16/24 Chief Complaint: Palpitations, presyncope HPI Narrative SALVADOR HENRIQUEZ, is a 64-year-old female history of diastolic dysfunction, anxiety, asthma, diabetes, hypertension, TIA in March presented [facility] ED 09/16/2024 from her doctor's office after being found to be new onset A-fib and having presyncopal episodes. She has been having palpitations off and on for the past month with frequent episodes of lightheadedness. In the ED she was found to be in A-fib with rates from 100-120s and was given IV metoprolol with improvement, also given 500 cc bolus however when she stood up she had another presyncopal episode. Chest x-ray also suggestive of some fluid overload, first troponin normal and lab workup otherwise unremarkable but because of the above hospitalist contacted for admission. Patient evaluated at bedside. She reports that over the past month she will intermittently get palpitations and will have these intermittent episodes of lightheadedness and they have you and happen when she has been sitting down, today did notice some shortness of breath as well. When asked about chest pain she said maybe she had a little bit earlier however she felt better after she ate so she thinks she was just hungry. Intermittently gets some headaches and has a little bit of nasal congestion which she thinks may be due to to what is going on outside. Patient also notes that she has MAIA but is compliant with her CPAP. Also of note patient does report she had lost weight but gained a little bit recently because she has been eating a lot of salt but she thought the reason why she was lightheaded was because her salt was low. [facility] Medical History Asthma Diabetes CHF (congestive heart failure) Osteoarthritis of left knee Left knee pain Syncope and collapse Nonsustained ventricular tachycardia HTN (hypertension) Chest pain, unspecified Abnormal electrocardiogram Hypokalemia HLD (hyperlipidemia) Home Medications ?Medication ?Instructions ?Recorded ?Last Taken ?Type sertraline 100 mg tablet 100 mg PO QHS 12/24/14 09/15/24 History potassium chloride 20 mEq 20 meq PO DAILY 11/23/16 09/15/24 History tablet,extended release(part/cryst) amlodipine 10 mg tablet 10 mg PO DAILY #30 tabs 11/29/17 09/15/24 Rx atorvastatin 20 mg tablet 20 mg PO DAILY 03/05/21 09/15/24 History albuterol sulfate 90 mcg/actuation 2 puff inhalation Q4H PRN SOB 07/19/21 09/15/24 History aerosol inhaler valsartan 320 1 tab PO DAILY 07/19/21 09/15/24 History mg-hydrochlorothiazide 12.5 mg tablet aspirin 81 mg tablet,delayed 81 mg PO DAILY 12/24/22 09/15/24 History release metformin 500 mg tablet 1,000 mg PO BID 12/24/22 09/15/24 History mometasone-formoterol HFA 200 2 inh inhalation BID 12/24/22 09/16/24 History mcg-5 mcg/actuation aerosol inhaler (Dulera) empagliflozin 10 mg tablet 10 mg PO DAILY 09/16/24 09/15/24 History (Jardiance) furosemide 20 mg tablet 20 mg PO DAILY 09/16/24 09/16/24 History metoprolol succinate 50 mg 50 mg PO DAILY 09/16/24 09/15/24 History tablet,extended release 24 hr montelukast 10 mg tablet 10 mg PO DAILY 09/16/24 09/15/24 History rosuvastatin 40 mg tablet 40 mg PO DAILY 09/16/24 09/15/24 History Allergy/AdvReac Type Severity Reaction Status Date / Time No Known Allergies Allergy Verified 12/20/22 14:10 Family History Father , age 55 Sudden cardiac Heart disease Surgical History Hx of left leg vein ablation (~09/2016) Social History Smoking Status: Never smoker alcohol intake: never substance use type: does not use caffeine: Yes Type: coffee Number of servings: 3 what type of physical activity do you participate in: none seatbelt use: always do you feel safe at home: Yes ROS ROS Narrative General: Denies fever/chills HENT: Sometimes intermittent headaches and nasal congestion, denies sore throat EYES: Denies changes in vision Resp: Denies cough, and 11 or shortness of breath earlier today Cardiac: Denies chest pain GI: Denies abdominal pain, denies changes in bowel, denies nausea/vomiting : Denies changes in urination Extremity: Denies swelling MSK: Denies weakness Neuro: Denies any numbness/tingling Heme: Denies any bleeding or bruising Skin: Denies rashes Psychiatric: No complaints voiced Vital Signs Vital Signs Vital Signs: 09/16/24 10:24 09/16/24 10:29 09/16/24 11:08 Temperature 98.4 F Temperature Source Oral Pulse Rate 84 108 H Respiratory Rate 18 16 Blood Pressure 115/90 H 114/84 H Blood Pressure Mean 98 94 Pulse Ox 94 95 Oxygen Delivery Method Room Air Room Air Room Air 09/16/24 11:29 09/16/24 12:00 09/16/24 13:00 Temperature Temperature Source Pulse Rate 97 92 86 Respiratory Rate 16 20 H 19 H Blood Pressure 118/76 117/79 109/84 H Blood Pressure Mean 90 91 93 Pulse Ox 98 95 90 Oxygen Delivery Method Room Air Room Air Weight Weight: 114.9 kg Body Mass Index (BMI) 38.5 Physical Exam Narrative General: Alert, oriented, no apparent distress HEENT: Atraumatic, normocephalic Eyes: Anicteric, normal conjunctiva, extraocular movements grossly intact Neck: Supple Respiratory: Fine crackles in the bases, normal respiratory effort Cardiovascular: Irregularly irregular, heart rate 90s to low 100s GI: Soft, nontender, nondistended Extremities: No significant pitting edema Musculoskeletal: Moving all extremities Neuro: No overt focal neurological deficits Skin: No rashes appreciated Psych: Cooperative Results Lab / Micro Data 09/16/24 10:30 09/16/24 10:30 Labs: Laboratory Results - last 24 hr 09/16/24 10:30: WBC 7.8, RBC 4.51, Hgb 13.4, Hct 41.8, MCV 92.7, MCH 29.7, MCHC 32.1, RDW Std Deviation 53.1 H, RDW Coeff of Cathy 15.7 H, Plt Count 331, MPV 10.1, Immature Gran % (Auto) 0.400, Neut % (Auto) 73.5 H, Lymph % (Auto) 15.9 L, [place] % (Auto) 8.3, Eos % (Auto) 1.3, Baso % (Auto) 0.6, Absolute Neuts (auto) 5.7, Absolute Lymphs (auto) 1.23, Nucleated RBC % 0, Sodium 140, Potassium 3.4, Chloride 103, Carbon Dioxide 21.1, Anion Gap 15, BUN 22 H, Creatinine 0.94, Estim Creat Clear Calc 78.35, Est GFR (MDRD) Non-Af 67, BUN/Creatinine Ratio 23.7 H, Glucose 108 H, Calcium 9.5, Troponin T High Sens 12 09/16/24 12:40: Troponin T Hi Sens 2 Hr 11, NT pro BNP II 1365 H Rhythm Strip Rhythm Strip: A-fib Rate: 120 Ectopy: None Imaging Radiology Impression Chest X-Ray 09/16/24 11:07 IMPRESSION: Mild cardiomegaly with vascular congestion and mild CHF. Reading Location: [facility] Assessment & Plan Assessment/Plan (1) Atrial fibrillation with RVR: PLAN: Plan # A-fib with RVR, new onset - Patient with rates in the 120s in the ED and given IV metoprolol with improvement - Does not have known history of A-fib - Admit to telemetry - Check TSH - Increase home metoprolol - CHADS2-VASc of 7, will start full dose anticoagulation - Echocardiogram ordered # Concern for acute exacerbation of chronic heart failure with preserved ejection fraction - Chest x-ray with mild cardiomegaly and vascular congestion with mild CHF - proBNP elevated at 1365 - Last echo in 2015 with normal EF and stage I diastolic dysfunction - Repeat echo - Daily weights and I's and O's - Will give 1 dose of IV Lasix then continue patient's home Lasix - Suspect mild exacerbation of CHF is likely due to patient now being in A-fib and having episodes of RVR in addition to patient increasing her salt intake due to thinking she was having lightheaded episodes from low-salt # Presyncope -Will check orthostats -EKG showed A-fib with a rate of 107 -Checking echocardiogram - Increasing beta-yessy as above - Patient got 50 of metoprolol tartrate in the ED, will give an additional 25 tonight and then increase metoprolol succinate to 75 mg daily thereafter # Recent TIA - TIA in March, on aspirin and statin - May have been due to underlying A-fib - Starting patient on Eliquis as above #Type 2 diabetes mellitus -Glucose checks and sliding scale insulin #MAIA -Continue home CPAP with O2 # Asthma - Continue home inhalers -As needed albuterol -I/S #Hypertension - Increasing metoprolol so hold amlodipine at this time to allow for adjustments for rate control - Continuing losartan hydrochlorothiazide with holding parameters #Depression/anxiety -Continue home medications #DVT ppx: Starting full dose anticoagulation Ronda Smart MD Charges/Coding Visit Charges Inpatient E&M: 18603 Init Hosp L2
--- NOTE | 2024-09-16 15:22 | ECHOCS_ITS ---
Reason For Study Reason For Study: ATRIAL FIBRILLATION/FLUTTER Procedure This was a 2D Doppler, Color Flow transthoracic echocardiogram. The study was technically difficult. Due to body habitus. Contrast injection was performed. Exam performed portable in ED. Left Ventricle Normal LV size. Left ventricular systolic function is normal. The left ventricular ejection fraction is 55 %. No regional wall motion abnormalities noted. Right Ventricle Normal RV size. Normal systolic function. Atria The left atrium is mildly enlarged. Normal right atrium. Mitral Valve Normal mitral valve. Mild (1+) eccentric mitral valve insufficiency. Tricuspid Valve Normal tricuspid valve. Aortic Valve Trisinus/trileaflet aortic valve. Pulmonic Valve Normal pulmonic valve. Great Vessels Normal aortic root. The pulmonary artery is normal size. Inferior vena cava collapse with respiration. Pericardium/Pleural Epicardial fat. MMode/2D Measurements & Calculations LVIDd: 4.5 cm IVSd: 1.1 cm Ao root diam: 3.4 cm LVIDs: 3.5 cm LVPWd: 0.87 cm RVDd: 3.2 cm FS: 22.1 % LAV(MOD-bp): 74.7 ml LVAd ap4: 31.8 cm2 SV(MOD-sp4): 61.1 ml LAV(MOD-bp) Indexed: 33.1 ml/m2 LVLd ap4: 7.5 cm SI(MOD-sp4): 27.1 ml/m2 LAV(MOD-sp2): 60.0 ml EDV(MOD-sp4): 109.8 ml LAV(MOD-sp4): 73.8 ml EDV(sp4-el): 114.3 ml LVAs ap4: 20.1 cm2 LVLs ap4: 6.9 cm ESV(MOD-sp4): 48.7 ml ESV(sp4-el): 50.0 ml EF(MOD-sp4): 55.7 % EF(sp4-el): 56.3 % SV(sp4-el): 64.4 ml LA A4 area: 24.4 cm2 LA dimension(2D): 3.7 cm RA A4 area: 18.1 cm2 TAPSE: 2.0 cm Doppler Measurements & Calculations MV E max all: 113.6 cm/sec Ao V2 max: 133.4 cm/sec LV V1 max: 114.8 cm/sec Ao max P.1 mmHg LV V1 max P.3 mmHg Ao V2 mean: 89.1 cm/sec LV V1 mean P.2 mmHg Ao mean P.5 mmHg LV V1 mean: 87.5 cm/sec Ao V2 VTI: 22.6 cm LV V1 VTI: 19.7 cm AV (velocity ratio): 0.87 PA V2 max: 124.2 cm/sec TR max all: 273.7 cm/sec PA V2 mean: 81.5 cm/sec TR max P.0 mmHg ECHO/Echo Complete W/ Contrast Interpretation Summary Normal LV size. Left ventricular systolic function is normal. The left ventricular ejection fraction is 55 %. The left atrium is mildly enlarged. Contrast injection was performed. Ordering Physician: Ronda Smart Referring Physician: Dannie Ulloa Performed By: Chinyere Stevenson, ROULA, RVT
[2024-09-16] MEDS: Furosemide 20 MG/2 ML VIAL IV (15:55)
[2024-09-16 16:18] LABS: Bedside Glucose 127 mg/dL (74-106)
[2024-09-16] MEDS: Albuterol 2.5 MG/3 ML VIAL.NEB. INHALATION (19:03)
[2024-09-16] MEDS: Budesonide Respules 0.5 MG/2 ML AMPUL.NEB. INHALATION (19:03)
[2024-09-16] MEDS: Sertraline 100 MG Tablet PO (21:29)
[2024-09-16] MEDS: 0.9% Saline Lock 10 ML Syringe IV (21:29)
[2024-09-16] MEDS: APIXABAN 5 MG TABLET PO (21:29)
[2024-09-16] MEDS: Atorvastatin Calcium 20 MG Tablet PO (21:29)
[2024-09-16] MEDS: Insulin Lispro 100 UNIT/ML INSULN.PEN SC (21:29)
[2024-09-16 21:49] LABS: Bedside Glucose 150 mg/dL (74-106)
[2024-09-17] VITALS (16 sets, daily range): BP systolic 90–135; BP diastolic 59–79; PULSE 82–129; RESP 14–18; TEMP 36.4–36.7; O2SAT 94–98; BMI 37.2
[2024-09-17] MEDS: Metoprolol Tartrate 25 MG Tablet PO ×2 (00:49→12:21)
[2024-09-17] MEDS: Acetaminophen 325 MG Tablet 650 MG PO (04:58)
[2024-09-17] MEDS: Budesonide Respules 0.5 MG/2 ML AMPUL.NEB. INHALATION ×2 (06:54→19:42)
[2024-09-17] MEDS: Albuterol 2.5 MG/3 ML VIAL.NEB. INHALATION ×3 (06:54→19:42)
[2024-09-17 07:03] LABS: Absolute Lymphocyte Count 1.23 X10^3/uL (0.83-4.51); Absolute Neutrophil Count 5.3 X10^3/uL (2.0-7.7); Basophil# 0.03 X10^3/uL; Basophil% 0.4 % (0-1); Eosinophil# 0.09 X10^3/uL; Eosinophils% 1.2 % (0-5); Hematocrit 40.2 % (37-47); Lymphocyte # 1.23 X10^3/ul (0.83-4.51); Lymphocyte % 16.8 % (19-41); Mean Corp Hgb Conc 32.3 g/dL (32-36); Mean Corpuscular Volume 92.8 fL (81-99); Mean Platelet Vol. 9.9 fl (6.2-12.0); Monocyte# 0.66 X10^3/uL; NRBC Flagged by Analyzer 0 % (0-5); Neutrophil % 72.2 % (47-70); Platelet Count 294 K/mm3 (150-450); RBC Distribution Width CV 15.7 % (11.6-14.6); RBC Distribution Width SD 53.3 fl (35.1-43.9); Red Blood Count 4.33 M/mm3 (4.2-5.4); White Blood Count 7.3 K/mm3 (4.4-11.0)
[2024-09-17 07:05] LABS: Bedside Glucose 131 mg/dL (74-106)
[2024-09-17 07:34] LABS: Anion Gap 12 (5-15); BUN 22 mg/dL (4-19); BUN/Creat Ratio 23.9 RATIO (10-20); Calcium,Total 9.3 mg/dL (7.6-11.0); Carbon Dioxide 23.8 mmol/L (21.0-32.0); Chloride 104 mmol/L (98-108); Cholesterol 116 mg/dL (<=200); Creatinine, Serum 0.93 mg/dL (0.70-1.20); EST Glomerular Filtration Rate 68 (>60); Estimated Creatinine Clearance 77.72 ml/min (50-250); Glucose 122 mg/dL (70-99); High Density Lipoprotein 39 mg/dL; Low Density Lipoprotein Calc. 49 mg/dL; Potassium 3.3 mmol/L (3.3-5.1); Sodium Level 140 mmol/L (133-145); Triglycerides 143 mg/dL; Very Low Density Lipoprotein 29 mg/dL (5-40); cholesterol:hdl ratio screen 2.99
[2024-09-17 07:52] LABS: Troponin T High Sens 4 HR 10 ng/L (<=14)
[2024-09-17] MEDS: Metoprolol(XL)Succ 25 MG Tablet 75 MG PO (09:14)
[2024-09-17] MEDS: Potassium Chloride Oral Tablet 20 MEQ PO (10:05)
[2024-09-17] MEDS: Losartan Potassium 100 MG Tablet PO (10:08)
[2024-09-17] MEDS: Aspirin E.C. 81 MG Tablet PO (10:08)
[2024-09-17] MEDS: APIXABAN 5 MG TABLET PO ×2 (10:08→22:08)
[2024-09-17] MEDS: hydroCHLOROthiazide 12.5mg 12.5 MG PO (10:08)
[2024-09-17] MEDS: Empagliflozin 10 MG Tablet PO (10:16)
[2024-09-17] MEDS: Furosemide 40 MG/4 ML Vial IV (10:16)
[2024-09-17] MEDS: 0.9% Saline Lock 10 ML Syringe IV ×2 (10:16→14:22)
[2024-09-17 11:37] LABS: Bedside Glucose 110 mg/dL (74-106)
--- NOTE | 2024-09-17 12:10 | CASEMGMT ---
Addendum entered by Rosa Riddle 09/18/24 12:26: Demographics verified. Pt states she also has a sister, Cynthia. Original Note: RN?CM?LOAN DOCUMENTS CLOSER?CM?to room to meet with patient for initial transition planning/care coordination?assessment.?RN?CM?introduced self and role at [facility].? Pt voices understanding and consents to?assessment?at this time.? Pt sitting up in chair in room in no distress at this time.? Pt is A/O at this time and answers all questions appropriately.?? Care providers and pharmacy verified/updated at this time. PCP: Dr Ulloa Specialists: Dr Mcdonald-field service poultry technician @ [facility], Dr Saravia-production wood craftsman @ [facility] Preferred Pharmacy: [facility] @ [place] Insurance [employer] Dual : Prescription Benefit:? yes. LNOK: Brothers, Anish and Toro Living Arrangements: Lives alone. Independent w/ADL's and IADL's. Transportation:?Pt states drives self and states no transportation concerns at this time.?Her car is parked @ [facility] PCP's office by Valente Bates. She would like [facility] van transport to her car @ [place] If he van is not available, she states her family may possibly be available. DME: Pt has a cane and functioning glucometer w/supplies @ home. She states she is getting low on test strips but has refills remaining for this and will take care of it. She has a PAP w/O2 bleed-in @ 2 L/M @ [facility] through [facility]. Pt is interested in getting a quad cane. Made aware insurance does not cover this and verbal list given of places this can be purchased. She voices appreciation. Pt wishes to return home and states has no concerns with going home at time of discharge.?CM?to follow for any discharge planning/needs.? Pt voices no further concerns/needs at this time.? Advised pt to ask for?CM?if any further questions/concerns/needs arise.? Voices understanding. PLAN:??Home Sharita DUARTEN?RN?CM
[2024-09-17] MEDS: Furosemide 20 MG Tablet PO (12:20)
[2024-09-17] MEDS: Potassium Chloride Oral Tablet 20 MEQ 40 MEQ PO (12:21)
[2024-09-17] MEDS: Digoxin 250 MCG/ML Ampul 500 MCG IV (14:21)
--- NOTE | 2024-09-17 14:27 | CASEMGMT ---
Met with patient to complete REARDON form. REARDON form explained to patient who voiced understanding and signed form. Original form placed in pt?s chart and copy provided to patient. Kelly Aponte, Discharge Planning Asst
--- NOTE | 2024-09-17 16:03 | PN.HOSP_ITS ---
Reason for Visit Reason for Visit: Palpitations/presyncope Subjective Subjective Patient still with intermittent palpitations. Denies any other presyncopal sensation since here. Still having intermittent tachycardia despite increase in beta-blockade. We did discuss further increase in her beta-yessy 200 twice daily and see if the twice daily dosing will help control her heart rate better. If not we may need alternative rate controlling medications. Weight patient voices understanding. We discussed her echocardiogram and overall plan of care and she voiced understanding. Patient is compliant with CPAP. Objective Data Objective Data Vital Signs: Vital Signs Temp Pulse Resp BP Pulse Ox O2 Del Method FiO2 97.6 F L 129 H 16 90/59 L 98 Room Air 28 09/17/24 14:16 09/17/24 14:21 09/17/24 14:16 09/17/24 14:16 09/17/24 14:16 09/17/24 14:16 09/16/24 22:20 Oxygen Delivery Method Room Air Weight: 111 kg Body Mass Index (BMI) 37.2 Intake & Output: Intake and Output for Last 24 Hours 09/15/24 09/16/24 09/17/24 23:59 23:59 23:59 Intake Total 1000 / 1000 Balance 1000 / 1000 Lab / Micro Data 09/17/24 06:33 09/17/24 06:33 Labs: Laboratory Results - last 24 hr 09/16/24 15:53: POC Glucose 127 H 09/16/24 21:26: POC Glucose 150 H 09/17/24 06:30: POC Glucose 131 H 09/17/24 06:33: WBC 7.3, RBC 4.33, Hgb 13.0, Hct 40.2, MCV 92.8, MCH 30.0, MCHC 32.3, RDW Std Deviation 53.3 H, RDW Coeff of Cathy 15.7 H, Plt Count 294, MPV 9.9, Immature Gran % (Auto) 0.400, Neut % (Auto) 72.2 H, Lymph % (Auto) 16.8 L, [place] % (Auto) 9.0, Eos % (Auto) 1.2, Baso % (Auto) 0.4, Absolute Neuts (auto) 5.3, Absolute Lymphs (auto) 1.23, Nucleated RBC % 0, Sodium 140, Potassium 3.3, Chloride 104, Carbon Dioxide 23.8, Anion Gap 12, BUN 22 H, Creatinine 0.93, Estim Creat Clear Calc 77.72, Est GFR (MDRD) Non-Af 68, BUN/Creatinine Ratio 23.9 H, Glucose 122 H, Calcium 9.3, Troponin T Hi Sens 4Hr 10, Triglycerides 143, Cholesterol 116, LDL Cholesterol, Calc 49, VLDL Cholesterol 29, HDL Cholesterol 39 L, Cholesterol/HDL Ratio 2.99, TSH 2.380 09/17/24 11:10: POC Glucose 110 H Radiography Diagnostic Testing: Radiology Impression Echocardiogram 09/16/24 15:22 Interpretation Summary Normal LV size. Left ventricular systolic function is normal. The left ventricular ejection fraction is 55 %. The left atrium is mildly enlarged. Contrast injection was performed. Ordering Physician: Ronda Smart Referring Physician: Dannie Ulloa Performed By: Chinyere Stevenson, ROULA, RVT Rhythm Strip Rhythm Strip: A-fib Rate: 120 Ectopy: None Physical Exam Const alert, oriented x3 and no apparent distress; Negative for average body habitus or healthy appearing Constitutional Narrative: Very pleasant, obese, white female, sitting up in a chair at the bedside, appears comfortable, nontoxic, on the phone talking but hanging up on my arrival HEENT head/scalp atraumatic and moist oral mucous membranes Head and Scalp: normocephalic Resp normal respiratory effort, no retractions, no use of accessory muscles and clear to auscultation bilaterally Auscultation: Negative for rales, rhonchi or wheezes Cardio regular rate, S1 normal heart sound, S2 normal heart sound, no murmurs, no rub, no gallops and no clicks Cardio Narrative: Rhythm is irregularly irregular but currently rate controlled GI normal to inspection, nondistended, normoactive bowel sounds, soft to palpation and non-tender GI Narrative: Protuberant abdomen Extremity no clubbing, cyanosis or edema Extremity Narrative: 2+ pedal and radial pulses Neuro oriented x3, moves all extremities and no focal motor deficits Speech: speech normal Psych affect normal Psych Narrative: Very pleasant Assessment & Plan Assessment/Plan (1) Orthostasis: (2) Atrial fibrillation with RVR: PLAN: Plan Palpitations/presyncope secondary to A-fib with RVR - Despite increase in beta-blockade patient still having tachycardia - Will discontinue ER and transition to metoprolol 100 p.o. twice daily - Continue Eliquis - Patient was given digoxin 500 IV x 1 dose but I would like to get away from using digoxin on a chronic basis with her - Will try to exert her tomorrow after she has had longer time on the beta- yessy - Echocardiogram was overtly unremarkable showing an EF of 55% and mild left atrial enlargement - TSH is within normal limits - Check magnesium in a.m. Acute on chronic HFpEF - proBNP was 1365 - Echocardiogram previously does show diastolic dysfunction - Continue daily weights and I's and O's - Will give 1 more dose of IV Lasix 40 mg - Continue home Lasix - Likely related to A-fib with RVR and once we achieve better rate control this should improve - Will continue home Lasix tomorrow - Repeat lab in a.m. to check electrolytes with diuretics TIA - Highly suspect it may be related to underlying A-fib - Continue Eliquis - Continue aspirin -continue statin DM-2 - Continue Accu-Cheks - Continue SSI - Cardiac/carb controlled diet - Continue home Jardiance - Hold home metformin MAIA - Continue home CPAP with O2 bleed History of asthma - Currently stable without signs of exacerbation - As needed albuterol - Continue home inhalers - Incentive spirometry - Continue home Singulair Essential hypertension/hyperlipidemia - Continue home statin - Continue to hold home amlodipine with adjustments in metoprolol -continue home losartan -continue home HCTZ - Monitor blood pressure closely may need to adjust losartan or HCTZ given increase in metoprolol Depression/anxiety - Continue home sertraline Obesity - BMI 37.2 - Complicates treatment, prognosis, outcomes - Recommend weight loss DVT prophylaxis - Continue full anticoagulation with Eliquis CODE STATUS -DNR CCA okay for short-term intubation verified at the time of admission Charges/Coding Visit Charges Inpatient E&M: 35218 Subs Hosp L2
[2024-09-17 17:19] LABS: Bedside Glucose 108 mg/dL (74-106)
[2024-09-17] MEDS: Atorvastatin Calcium 20 MG Tablet PO (22:08)
[2024-09-17] MEDS: Sertraline 100 MG Tablet PO (22:17)
[2024-09-17] MEDS: Montelukast 10 MG Tablet PO (22:17)
[2024-09-17 22:53] LABS: Bedside Glucose 105 mg/dL (74-106)
[2024-09-17] MEDS: Metoprolol Tartrate 50 MG Tablet PO (23:15)
[2024-09-18] VITALS (12 sets, daily range): BP systolic 86–129; BP diastolic 56–77; PULSE 64–120; RESP 12–20; TEMP 36.1–36.9; O2SAT 91–98; BMI 36.9
[2024-09-18] MEDS: Albuterol 2.5 MG/3 ML VIAL.NEB. INHALATION ×3 (06:58→19:19)
[2024-09-18] MEDS: Budesonide Respules 0.5 MG/2 ML AMPUL.NEB. INHALATION ×2 (06:58→19:19)
[2024-09-18 07:00] LABS: Hematocrit 41.7 % (37-47); Hemoglobin 13.6 g/dL (12.0-15.0); Mean Corp Hgb Conc 32.6 g/dL (32-36); Mean Corpuscular Volume 92.1 fL (81-99); Mean Platelet Vol. 10.2 fl (6.2-12.0); Platelet Count 297 K/mm3 (150-450); RBC Distribution Width CV 15.7 % (11.6-14.6); RBC Distribution Width SD 53.1 fl (35.1-43.9); Red Blood Count 4.53 M/mm3 (4.2-5.4); White Blood Count 7.5 K/mm3 (4.4-11.0)
[2024-09-18 07:15] LABS: Bedside Glucose 108 mg/dL (74-106)
[2024-09-18 07:32] LABS: ALB/GLOB Ratio 1.3 RATIO (0.9-2.4); AST(SGOT) 16 U/L (<=31); Alanine Aminotransfer ALT/SGPT 18 U/L (<=34); Albumin, Serum 3.8 g/dL (3.4-4.8); Alkaline Phosphatase 73 U/L (35-104); Anion Gap 13 (5-15); BUN 23 mg/dL (4-19); BUN/Creat Ratio 26.3 RATIO (10-20); Calcium,Total 9.2 mg/dL (7.6-11.0); Carbon Dioxide 23.4 mmol/L (21.0-32.0); Chloride 104 mmol/L (98-108); Creatinine, Serum 0.87 mg/dL (0.70-1.20); EST Glomerular Filtration Rate 74 (>60); Estimated Creatinine Clearance 82.76 ml/min (50-250); Glucose 110 mg/dL (70-99); Magnesium 2.2 mg/dL (1.5-2.2); Phosphorus 4.2 mg/dL (2.7-4.5); Potassium 3.3 mmol/L (3.3-5.1); Protein, Total 6.7 g/dL (5.9-8.4); Sodium Level 141 mmol/L (133-145); Total Bilirubin 0.41 mg/dL (0.00-1.30)
[2024-09-18] MEDS: Aspirin E.C. 81 MG Tablet PO (09:56)
[2024-09-18] MEDS: APIXABAN 5 MG TABLET PO ×2 (09:56→21:18)
[2024-09-18] MEDS: Empagliflozin 10 MG Tablet PO (09:57)
[2024-09-18] MEDS: Furosemide 20 MG Tablet PO (09:57)
[2024-09-18] MEDS: Potassium Chloride Oral Tablet 20 MEQ PO (11:04)
[2024-09-18 11:41] LABS: Bedside Glucose 126 mg/dL (74-106)
--- NOTE | 2024-09-18 12:25 | CASEMGMT ---
CYDNEY UGALDE NOTE: CYDNEY CM to room. Pt sitting up in chair. Discussed discharge planning. Pt states she has been getting around her room well w/use of cane. She is aware she may discharge home today and feels okay with this. She feels safe to discharge home alone. She declines needing any OP therapy and denies any dc needs. She was made aware, if she changes her mind once she returns home, to discuss this w/her PCP. She states her family has already brought her car to [facility] and she if she is allowed to drive home @ dc, that is her plan. Sharita VALLADARES RN CM
--- NOTE | 2024-09-18 14:28 | PCM.PN.HOSP ---
Reason for Visit Reason for Visit: Palpitations/presyncope Subjective Subjective Patient states she is overall feeling better but still having some lightheadedness. Heart rate seem to be better controlled. Still some mild tachycardia overnight Objective Data Objective Data Vital Signs: Vital Signs Temp Pulse Resp BP Pulse Ox O2 Del Method FiO2 97.6 F L 84 16 86/73 L 95 Room Air 28 09/18/24 11:01 09/18/24 11:01 09/18/24 11:01 09/18/24 11:01 09/18/24 11:01 09/18/24 11:01 09/16/24 22:20 Oxygen Delivery Method Room Air Weight: 110.2 kg Body Mass Index (BMI) 36.9 Intake & Output: Intake and Output for Last 24 Hours 09/16/24 09/17/24 09/18/24 23:59 23:59 23:59 Intake Total 1000 / 1000 1200 / 1560 460 / 460 Balance 1000 / 1000 1200 / 1560 460 / 460 Lab / Micro Data 09/18/24 06:35 09/18/24 06:35 Labs: Laboratory Results - last 24 hr 09/17/24 16:56: POC Glucose 108 H 09/17/24 22:16: POC Glucose 105 09/18/24 06:35: WBC 7.5, RBC 4.53, Hgb 13.6, Hct 41.7, MCV 92.1, MCH 30.0, MCHC 32.6, RDW Std Deviation 53.1 H, RDW Coeff of Cathy 15.7 H, Plt Count 297, MPV 10.2, Sodium 141, Potassium 3.3, Chloride 104, Carbon Dioxide 23.4, Anion Gap 13, BUN 23 H, Creatinine 0.87, Estim Creat Clear Calc 82.76, Est GFR (MDRD) Non-Af 74, BUN/Creatinine Ratio 26.3 H, Glucose 110 H, Calcium 9.2, Phosphorus 4.2, Magnesium 2.2, Total Bilirubin 0.41, AST 16, ALT 18, Alkaline Phosphatase 73, Total Protein 6.7, Albumin 3.8, Globulin 3.0, Albumin/Globulin Ratio 1.3, POC Glucose 108 H 09/18/24 11:06: POC Glucose 126 H Rhythm Strip Rhythm Strip: A-fib Rate: 120 Ectopy: None Physical Exam Const alert, oriented x3, no apparent distress and well nourished; Negative for average body habitus or healthy appearing Constitutional Narrative: Very pleasant, obese, white female, sitting up in a chair at the bedside, appears comfortable, nontoxic HEENT head/scalp atraumatic and moist oral mucous membranes HEENT Narrative: Mallampati 3, no thrush Head and Scalp: normocephalic Resp normal respiratory effort, no retractions, no use of accessory muscles and clear to auscultation bilaterally Auscultation: Negative for rales, rhonchi or wheezes Cardio regular rate, S1 normal heart sound, S2 normal heart sound, no murmurs, no rub, no gallops and no clicks Cardio Narrative: Rhythm is irregularly irregular but currently rate controlled GI normal to inspection, nondistended, normoactive bowel sounds, soft to palpation and non-tender GI Narrative: Protuberant abdomen Extremity no clubbing, cyanosis or edema Extremity Narrative: 2+ pedal and radial pulses Neuro oriented x3, moves all extremities and no focal motor deficits Speech: speech normal Psych affect normal Psych Narrative: Very pleasant Assessment & Plan Assessment/Plan (1) Orthostasis: (2) Atrial fibrillation with RVR: PLAN: Plan Palpitations/presyncope secondary to A-fib with RVR - Despite increase in beta-blockade patient still having tachycardia - Decrease metoprolol to 50 mg p.o. twice daily - Add Cardizem 120 mg daily and will stop other home antihypertensives for now - Echocardiogram was overtly unremarkable showing an EF of 55% and mild left atrial enlargement - TSH is within normal limits - Check magnesium in a.m. Acute on chronic HFpEF - proBNP was 1365 - Echocardiogram previously does show diastolic dysfunction - Continue daily weights and I's and O's - Discontinue IV Lasix - Will hold home Lasix today as pressures old but low - Likely related to A-fib with RVR and once we achieve better rate control this should improve TIA - Highly suspect it may be related to underlying A-fib - Continue Eliquis - Continue aspirin - continue statin DM-2 - Continue Accu-Cheks - Continue SSI - Cardiac/carb controlled diet - Continue home Jardiance - Hold home metformin MAIA - Continue home CPAP with O2 bleed History of asthma - Currently stable without signs of exacerbation - As needed albuterol - Continue home inhalers - Incentive spirometry - Continue home Singulair Essential hypertension/hyperlipidemia - Continue home statin - Continue to hold home amlodipine - Discontinue home losartan - Discontinue home HCTZ -Decrease to metoprolol 50 mg twice daily -Start Cardizem 120 mg daily Depression/anxiety - Continue home sertraline Obesity - BMI 36.9 - Complicates treatment, prognosis, outcomes - Recommend weight loss DVT prophylaxis - Continue full anticoagulation with Eliquis CODE STATUS -DNR CCA okay for short-term intubation verified at the time of admission Charges/Coding Visit Charges Inpatient E&M: 30796 Subs Hosp L2
[2024-09-18 16:22] LABS: Bedside Glucose 137 mg/dL (74-106)
[2024-09-18] MEDS: Atorvastatin Calcium 20 MG Tablet PO (21:18)
[2024-09-18] MEDS: Montelukast 10 MG Tablet PO (21:18)
[2024-09-18] MEDS: Sertraline 100 MG Tablet PO (21:19)
[2024-09-18] MEDS: Insulin Lispro 100 UNIT/ML INSULN.PEN SC (21:24)
[2024-09-18] MEDS: Metoprolol Tartrate 50 MG Tablet PO (21:29)
[2024-09-18 21:51] LABS: Bedside Glucose 180 mg/dL (74-106)
[2024-09-19] VITALS (7 sets, daily range): BP systolic 104–121; BP diastolic 67–93; PULSE 67–91; RESP 16–18; TEMP 36.3–36.7; O2SAT 94–98; BMI 37.8
[2024-09-19 05:57] LABS: Hematocrit 41.2 % (37-47); Hemoglobin 13.2 g/dL (12.0-15.0); Mean Corpuscular Hgb 29.7 pg (27.0-32.0); Mean Corpuscular Volume 92.8 fL (81-99); Mean Platelet Vol. 10.1 fl (6.2-12.0); Platelet Count 303 K/mm3 (150-450); RBC Distribution Width CV 15.8 % (11.6-14.6); RBC Distribution Width SD 53.2 fl (35.1-43.9); Red Blood Count 4.44 M/mm3 (4.2-5.4); White Blood Count 7.1 K/mm3 (4.4-11.0)
[2024-09-19 06:29] LABS: Anion Gap 13 (5-15); BUN 21 mg/dL (4-19); BUN/Creat Ratio 22.8 RATIO (10-20); Calcium,Total 9.1 mg/dL (7.6-11.0); Carbon Dioxide 24.3 mmol/L (21.0-32.0); Chloride 105 mmol/L (98-108); Creatinine, Serum 0.93 mg/dL (0.70-1.20); EST Glomerular Filtration Rate 68 (>60); Estimated Creatinine Clearance 78.47 ml/min (50-250); Glucose 110 mg/dL (70-99); Potassium 3.5 mmol/L (3.3-5.1); Sodium Level 142 mmol/L (133-145)
[2024-09-19 06:32] LABS: Bedside Glucose 116 mg/dL (74-106)
[2024-09-19] MEDS: Budesonide Respules 0.5 MG/2 ML AMPUL.NEB. INHALATION (06:59)
[2024-09-19] MEDS: Albuterol 2.5 MG/3 ML VIAL.NEB. INHALATION (06:59)
[2024-09-19] MEDS: dilTIAZem CD 120 MG Capsule PO (09:10)
[2024-09-19] MEDS: Aspirin E.C. 81 MG Tablet PO (09:10)
[2024-09-19] MEDS: APIXABAN 5 MG TABLET PO (09:10)
[2024-09-19] MEDS: Empagliflozin 10 MG Tablet PO (09:11)
[2024-09-19] MEDS: Potassium Chloride Oral Tablet 20 MEQ PO (09:11)
[2024-09-19] MEDS: Metoprolol Tartrate 50 MG Tablet PO (11:27)
[2024-09-19 11:48] LABS: Bedside Glucose 110 mg/dL (74-106)
--- NOTE | 2024-09-19 12:37 | DS.PCM_ITS ---
Providers Date of Admission: 09/16/24 Date of Discharge: 09/19/24 Primary Care Physician: Dr. Dannie Ulloa MD Reason For Visit: PALPITATIONS & PRESYNCOPE HE NEW ONSET OF AFIB Diagnosis Discharge Diagnosis (1) Orthostasis: Status: Acute Code(s): I95.1 - Orthostatic hypotension (2) Atrial fibrillation with RVR: Status: Acute Code(s): I48.91 - Unspecified atrial fibrillation Medications at Discharge Home Medications sertraline 100 mg tablet 100 mg PO QHS 12/24/14 potassium chloride 20 mEq tablet,extended release(part/cryst) 20 meq PO DAILY 11/23/16 atorvastatin 20 mg tablet 20 mg PO DAILY 03/05/21 albuterol sulfate 90 mcg/actuation aerosol inhaler 2 puff inhalation Q4H PRN SOB 07/19/21 aspirin 81 mg tablet,delayed release 81 mg PO DAILY 12/24/22 metformin 500 mg tablet 1,000 mg PO BID 12/24/22 mometasone-formoterol HFA 200 mcg-5 mcg/actuation aerosol inhaler (Dulera) 2 inh inhalation BID 12/24/22 empagliflozin 10 mg tablet (Jardiance) 10 mg PO DAILY 09/16/24 furosemide 20 mg tablet 20 mg PO DAILY 09/16/24 montelukast 10 mg tablet 10 mg PO QHS 09/16/24 rosuvastatin 40 mg tablet 40 mg PO DAILY 09/16/24 apixaban 5 mg tablet (Eliquis) 5 mg PO BID #60 tabs 09/19/24 diltiazem HCl 120 mg capsule,extended release 24 hr 120 mg PO DAILY #30 caps 09/19/24 metoprolol tartrate 50 mg tablet 50 mg PO BID #60 tabs 09/19/24 Hospital Course Operations None Procedures 2-D Echocardiogram, EKG and - (Chest x-ray) Summary of Care Provided Minutes Spent on Discharge: 38 Hospital Course: Patient is a 64-year-old white female who present emergency department [facility] on 09/16/2024 with a chief complaint of palpitations and presyncope. Patient had presented to her doctor's office and was found to be in new onset A-fib with RVR. She was having some presyncopal episodes associated with this during ambulation and had been having palpitations on and off for about a month. In conjunction with her palpitation she had frequent episodes of lightheadedness. In the emergency department, she was found to have heart rates between 100 and 120 and was given IV metoprolol with improvement in her heart rates. She was also given a 500 cc bolus as she was orthostatic positive however she stood up and had another presyncopal episode so admission was felt to be required. Vital signs on presentation showed a temperature of 98.4, heart rate 84, respiratory rate 18, blood pressure was 115/90 and pulse ox was 94% on room air. Prior to admission patient was on amlodipine 10 mg daily, valsartan/HCTZ, Lasix 20 mg daily, and metoprolol 50 mg extended release. Her TSH was normal. An echocardiogram was performed on 09/17/2024 and demonstrated an EF of 55% with a mildly enlarged left atrium. She was monitored on telemetry as we adjusted her medications. Ultimately she ended up on metoprolol 50 mg p.o. twice daily for extended coverage and Cardizem 120 mg daily. We discontinued her amlodipine, valsartan, and HCTZ. She will continue her Lasix 20 mg daily. It took about 48 hours to get her medications titrated the point where she was well rate controlled and not having any blood pressure issues via hypotension. At the time of discharge she was not having any presyncopal episodes. She was able to ambulate throughout the hallways and her max heart rate with this was in the 110-120 which is expected exercise response. Patient's overall conditioning at baseline is poor. She was started on apixaban 5 mg p.o. twice daily for stroke prophylaxis. I have asked her to follow-up as an outpatient with cardiology. Information was given and she was asked to call on Saturday. She is also to follow-up with her primary care physician within the next 2 weeks. No other medication changes were made. She was able to be discharged home in stable condition on 09/19/2024. Discharge diagnoses: Palpitations Presyncope secondary to A-fib with RVR Acute on chronic HFpEF History of TIA DM-2 MAIA History of asthma Essential hypertension Hyperlipidemia Depression Anxiety Obesity Physical Exam Const alert, oriented x3, no apparent distress, no limitations and well nourished; Negative for average body habitus or healthy appearing Constitutional Narrative: Very pleasant, obese, white female, sitting up in bed watching television, appears comfortable, nontoxic General Appearance: cooperative, comfortable, well kempt and well developed Exam Limitations: no limitations Nutritional Appearance: obese HEENT normocephalic, head/scalp atraumatic, hearing grossly normal bilaterally and moist oral mucous membranes HEENT Narrative: Mallampati 3-4, no thrush Eyes EOMs intact bilaterally and conjunctivae normal Eyes Narrative: No scleral icterus Neck supple Neck Narrative: Neck is short and thick but trachea is midline Resp normal respiratory effort, no retractions, no use of accessory muscles and clear to auscultation bilaterally Auscultation: Negative for rales, rhonchi or wheezes Cardio regular rate, S1 normal heart sound, S2 normal heart sound, no murmurs, no rub, no gallops and no clicks; Negative for regular rhythm Cardio Narrative: Rhythm is irregularly irregular and rate controlled GI normal to inspection, nondistended, normoactive bowel sounds, soft to palpation and non-tender GI Narrative: Protuberant abdomen Extremity no clubbing, cyanosis or edema Extremity Narrative: 2+ pedal and radial pulses Skin no wounds, skin turgor normal, no jaundice, no petechiae and no mottling Neuro oriented x3, moves all extremities and no focal motor deficits Neuro Narrative: Patient able to ambulate independently with no significant gait abnormalities and good strength and pace Speech: speech normal Psych affect normal Psych Narrative: Very pleasant, eye contact is good the patient interacts appropriately Weight / BMI Weight Weight: 113 kg Body Mass Index (BMI) 37.8 ABG / Lab / Microbiology Data 09/19/24 04:45 09/19/24 04:45 Laboratory: Laboratory Results - last 24 hr 09/18/24 16:02: POC Glucose 137 H 09/18/24 21:23: POC Glucose 180 H 09/19/24 04:45: WBC 7.1, RBC 4.44, Hgb 13.2, Hct 41.2, MCV 92.8, MCH 29.7, MCHC 32.0, RDW Std Deviation 53.2 H, RDW Coeff of Cathy 15.8 H, Plt Count 303, MPV 10.1, Sodium 142, Potassium 3.5, Chloride 105, Carbon Dioxide 24.3, Anion Gap 13, BUN 21 H, Creatinine 0.93, Estim Creat Clear Calc 78.47, Est GFR (MDRD) Non- Af 68, BUN/Creatinine Ratio 22.8 H, Glucose 110 H, Calcium 9.1 09/19/24 06:14: POC Glucose 116 H 09/19/24 11:29: POC Glucose 110 H D/C Instructions Discharge Diet: Low fat / Low cholesterol Discharge Activity: Return to Normal Activity DC O2, CPAP, BIPAP Needs Home O2 Discharge instructions: No Meaningful Use Info Meaningful Use Meaningful Use Diagnoses (Choose all that apply): None applicable Ischemic Stroke Statin Dosing Therapy Reference: STATIN DOSE THERAPY REFERENCE: * Patients > 75 years receive moderate or high dose statin therapy. * Patients 75 years or YOUNGER should receive HIGH intensity statin dose unless contraindicated. You will be required to document reason for non-treatment if statin daily dose does not meet guidelines. HIGH DOSE STATIN THERAPY DAILY Atorvastatin > than or = to 40 mg Rosuvastatin > than or = to 20 mg Amlodipine + Atorvastatin > than or = to 2.5/40 mg Ezetimibe + Simvastatin 10/80 mg Simvastatin 80mg Discharge Plan Admission Admit Date/Time: 09/16/24 13:37 Primary Reason for Your Visit: lightheadedness and SOB Attending Provider: Clara Cook Primary Care Provider: Dannie Ulloa Consulting Providers: Ronda Smart Discharge Orders/Prescriptions Prescriptions: New Eliquis 5 mg Tablet 5 mg PO BID Qty: 60 11RF diltiazem HCl 120 mg Capsule,Extended Release 24hr 120 mg PO DAILY Qty: 30 1RF metoprolol tartrate 50 mg Tablet 50 mg PO BID Qty: 60 1RF Continued metformin 500 mg tablet 1,000 mg PO BID aspirin 81 mg tablet,delayed release (DR/EC) 81 mg PO DAILY Dulera 200-5 mcg/actuation HFA aerosol inhaler 2 inh inhalation BID Patient Comments: Inhale 2 Puffs as instructed twice daily. sertraline 100 MG tablet 100 mg PO QHS potassium chloride 20 MEQ tablet,ER particles/crystals 20 meq PO DAILY atorvastatin 20 MG tablet 20 mg PO DAILY Patient Comments: cholesterol albuterol sulfate 90 mcg/actuation HFA aerosol inhaler 2 puff INHALATION Q4H PRN (Reason: SOB) montelukast 10 mg tablet 10 mg PO QHS Jardiance 10 mg tablet 10 mg PO DAILY rosuvastatin 40 mg tablet 40 mg PO DAILY furosemide 20 mg tablet 20 mg PO DAILY Discontinued valsartan-hydrochlorothiazide 320-12.5 mg tablet 1 tab PO DAILY metoprolol succinate 50 mg tablet extended release 24 hr 50 mg PO DAILY amlodipine 10 mg tablet 10 mg PO DAILY Qty: 30 11RF Patient Comments: blood pressure Referrals / Follow Up: Eric Sandhu MD [Med Staff - Active Staff] - Within 2 Weeks (call Saturday to make appt for hospital follow-up for a-fib) Dannie Ulloa MD [Primary Care Provider] - Within 2 Weeks Disposition Disposition (needs filled in before D/C Order can be placed): Home, Self Care Charges/Coding Visit Charges Inpatient E&M: 45867 Disch Hosp >30min
== END 2024-09-19 14:42 | disposition home or self-care (01) | DRG 291 ==
LOC: ED 12:43 → PCU 09-17 07:00
PROVIDERS: Admitting Provider Internal Medicine; Emergency Provider Emergency Medicine; PCP Internal Medicine; Visit Provider Internal Medicine
DX: I11.0 Hypertensive heart disease with heart failure (principal); I50.33 Acute on chronic diastolic (congestive) heart failure; E11.9 Type 2 diabetes mellitus without complications; Z66 Do not resuscitate; J45.909 Unspecified asthma, uncomplicated; F32.A Depression, unspecified; E66.9 Obesity, unspecified; I48.91 Unspecified atrial fibrillation; G47.33 Obstructive sleep apnea (adult) (pediatric); E78.5 Hyperlipidemia, unspecified; F41.9 Anxiety disorder, unspecified; I95.1 Orthostatic hypotension; Z68.37 Body mass index [BMI] 37.0-37.9, adult; Z79.82 Long term (current) use of aspirin; Z79.84 Long term (current) use of oral hypoglycemic drugs; Z79.899 Other long term (current) drug therapy; Z86.73 Personal history of transient ischemic attack (TIA), and cerebral infarction without residual deficits
CPT/HCPCS: 36415; 71045; 80048; 80053; 80061; 82962; 83735; 83880; 84100; 84443; 84484; 85025; 85027; 93005; 93306; 94640; 94660; 94668; 99285; Q9957; A4216; C8929; J1940

== ENCOUNTER 2024-10-16 09:07 | Emergency (ER) | payer MEDICARE, MEDICAID, SELFPAY ==
[2024-10-16] VITALS (13 sets, daily range): BP systolic 129–153; BP diastolic 68–108; PULSE 41–115; RESP 13–19; TEMP 36.1–36.6; O2SAT 92–99; BMI 39.2
--- NOTE | 2024-10-16 09:18 | EKG12_ITS ---
Test Reason : POST CARDIOVERSION Blood Pressure : */* mmHG Vent. Rate : 70 BPM Atrial Rate : 70 BPM P-R Int : 170 ms QRS Dur : 82 ms QT Int : 394 ms P-R-T Axes : 46 1 42 degrees QTcB Int : 425 ms Normal sinus rhythm Nonspecific ST abnormality Abnormal ECG Confirmed by NZA BETHEA, SURY ([id number]), continuity editor TAYLOR OAKLEY ([id number]) on 10/20/2024 7:02:14 AM Referred By: Clara Cook Confirmed By: SURY CHILDS MD
--- NOTE | 2024-10-16 09:18 | RAD_ITS ---
EXAM: XR Chest, 1 View CLINICAL INDICATION: CHEST PAIN TECHNIQUE: Frontal view of the chest. COMPARISON: No relevant prior studies available. FINDINGS: LUNGS AND PLEURAL SPACES: Unremarkable. No consolidation. No pneumothorax. HEART: Cardiomegaly without overt failure. MEDIASTINUM: Unremarkable. Normal mediastinal contour. BONES/JOINTS: Unremarkable. No acute fracture. RAD/Chest 1 View (Portable) IMPRESSION: Cardiomegaly without overt failure. Reading Location: [facility]
--- NOTE | 2024-10-16 09:18 | ED.VIS.CHEST ---
HPI History of Present Illness Chief Complaint: Palpitations Detail of Chief Complaint: A-fib RVR Informant: patient Onset/Context/Timing Onset: Days Activity at onset: gradual Timing: Continuous Current Severity: Mild Maximum Severity: Mild Narrative Narrative: 64-year-old female diagnosed with A-fib about 4 weeks ago. Currently on metoprolol and the blood thinner Eliquis. She also has a history of diabetes and hypertension. Says she has had accelerated heart rate last several days with shortness of breath. Saw the heart group today she was in A-fib RVR and they sent her down the emergency department. Denies any chest pain. Denies any vomiting or diarrhea. No fever nor melena. Prior Similar Symptoms: Yes Recent Illness/Hospitalization: Yes CVD Risk Factors: Positive for Hypertension and Diabetes PE Risk Factors: Negative for Recent Travel/Surgery, Recent Immobilization, Prior DVT or PE, Cancer or OCP + Smoking + >/=35 TAD Risk Factors: Negative for Marfan's Syndrome [facility] Medical History Pulmonary hypertension MAIA (obstructive sleep apnea) Atrial fibrillation with RVR Asthma Diabetes CHF (congestive heart failure) Osteoarthritis of left knee Left knee pain Syncope and collapse Nonsustained ventricular tachycardia HTN (hypertension) Chest pain, unspecified Abnormal electrocardiogram Hypokalemia HLD (hyperlipidemia) Home Medications ?Medication ?Instructions ?Recorded ?Last Taken ?Type sertraline 100 mg tablet 100 mg PO QHS 12/24/14 10/15/24 History potassium chloride 20 mEq 20 meq PO DAILY 11/23/16 10/15/24 History tablet,extended release(part/cryst) albuterol sulfate 90 mcg/actuation 2 puff inhalation Q4H PRN SOB 07/19/21 09/15/24 History aerosol inhaler aspirin 81 mg tablet,delayed 81 mg PO DAILY 12/24/22 10/15/24 History release metformin 500 mg tablet 1,000 mg PO BID 12/24/22 10/15/24 History mometasone-formoterol HFA 200 2 inh inhalation BID 12/24/22 10/15/24 History mcg-5 mcg/actuation aerosol inhaler (Dulera) empagliflozin 10 mg tablet 10 mg PO DAILY 09/16/24 10/15/24 History (Jardiance) furosemide 20 mg tablet 20 mg PO DAILY 09/16/24 10/16/24 History montelukast 10 mg tablet 10 mg PO QHS 09/16/24 10/15/24 History rosuvastatin 40 mg tablet 40 mg PO DAILY 09/16/24 10/15/24 History apixaban 5 mg tablet (Eliquis) 5 mg PO BID #60 tabs 09/19/24 10/16/24 Rx diltiazem HCl 120 mg 120 mg PO DAILY #30 caps 09/19/24 10/15/24 Rx capsule,extended release 24 hr metoprolol tartrate 50 mg tablet 50 mg PO BID #60 tabs 09/19/24 10/15/24 Rx acetaminophen 650 mg 1,300 mg PO Q12H PRN fever or pain 10/16/24 Unknown History tablet,extended release Allergy/AdvReac Type Severity Reaction Status Date / Time ethyl alcohol Allergy Hives Verified 10/16/24 09:08 indomethacin AdvReac Rash Verified 10/16/24 09:08 Family History Father , age 55 Sudden cardiac Heart disease CVA (cerebral vascular accident) Mother Hypertension Cancer Alzheimer's disease Surgical History History of bilateral knee replacement Hx of left leg vein ablation (~09/2016) Social History Smoking Status: Never smoker alcohol intake: never substance use type: does not use caffeine: Yes Type: coffee Number of servings: 3 what type of physical activity do you participate in: none seatbelt use: always do you feel safe at home: Yes ROS ROS ED ROS Narrative Generalized weakness. Palpitations. Accelerated heart rate. Shortness of breath. Constitutional Constitutional ED: Denies chills or fever(s) Eyes Eyes: Reports none ENT ENT ED: Denies ear pain Cardiovascular Cardiovascular: Reports as per HPI, palpitations and racing heartbeat; Denies chest pain Respiratory/Chest Respiratory/Chest: Reports dyspnea and dyspnea on exertion; Denies cough Gastrointestinal Gastrointestinal: Denies abdominal pain Genitourinary Genitourinary ED: Denies dysuria or hematuria Musculoskeletal Musculoskeletal: Denies arthralgias or back pain Integumentary Denies abscess or Abrasions Neurologic Neurologic: Denies headache(s) Psychiatric Psychiatric: Denies anxiety Endocrine Endocrinology: Denies cold intolerance Hematologic/Lymphatic Hematologic/Lymphatic: Denies lymphadenopathy Allergic/Immunologic Allergic/Immunologic ED: Denies mouth swelling, tongue swelling or urticaria EXAM Physical Exam Narrative Exam Narrative: Well-appearing six 4-year-old female. Vital signs stable she is in A-fib her heart rate is around 120-140. H EENT exam pupils round reactive light. Extra motions are intact. Moist mucous membranes. Neck nontender. No JVD. No lymphadenopathy. Lungs clear to auscultation bilaterally. Heart A-fib RVR rate about 125. Abdomen soft nontender. Moving all 4 extremities. 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 Normal dorsi plantarflexion. Calves are nontender without edema or cords. Neurologically she is awake and alert. Answering questions following commands. Const Vital Signs: 10/16/24 09:07 10/16/24 09:17 10/16/24 09:18 Temperature 97 F L Temperature Source Temporal Pulse Rate 41 L Respiratory Rate 14 Respiratory Effort Short of Breath Blood Pressure 153/108 H Blood Pressure Mean 123 Pulse Ox 99 95 Oxygen Delivery Method Room Air Room Air 10/16/24 11:15 Temperature Temperature Source Pulse Rate 94 Respiratory Rate 16 Respiratory Effort Blood Pressure 145/89 H Blood Pressure Mean 107 Pulse Ox 96 Oxygen Delivery Method Room Air Positive well nourished; Negative for cachectic, contractures or unkempt General Appearance ED: NAD; Negative for unkempt, cachectic, contractures or pallor Nutritional Appearance: Negative for cachectic HEENT Reports moist mucous membranes normocephalic and atraumatic; Negative for trauma or tenderness Eyes PERRL and EOMs intact bilaterally General Eye ED: Negative for pale conjunctiva or scleral icterus Neck no lymphadenopathy, supple and no JVD General: Negative for tenderness Chest Wall inspection of chest normal and palpation of chest normal Resp normal respiratory effort and clear to auscultation bilaterally Auscultation: Negative for rales, rhonchi, wheezes or diminished lung sounds Cardio no murmurs; Negative for regular rate or regular rhythm Rate: tachycardic Peripheral Pulses: pulses 2+ throughout GI normal to inspection, nondistended, normoactive bowel sounds, soft to palpation, non-tender, non-distended and no masses Back/Spine no CVA tenderness and no thoracic nor lumbar tenderness General Back: Negative for CVA tenderness Cervical Spine: Negative for cervical spine tenderness Extremity normal to inspection General Extremety ED: Negative for edema General Extremity: Negative for edema Neuro oriented x3 and CN's II-XII intact bilaterally Sensorium / Orientation: awake, alert, oriented to person, oriented to place and oriented to time; Negative for confused or lethargic Motor Exam: strength 5/5 throughout Psych mental status grossly normal Appearance: Negative for unkempt Attitude: No agitated Mood & Affect: Negative for depressed, anxious or tearful Skin no rashes or lesions noted and no wounds General Skin Exam: Negative for jaundice or pallor Rashes: No rashes noted Trauma: Negative for abrasion or laceration MDM MDM MDM Narrative Medical decision making narrative: 64-year-old female recent diagnosis of A-fib on Eliquis and metoprolol. Presents today with symptoms of generalized weakness shortness of breath and A-fib with RVR. She will be given IV Cardizem. Cardiac workup. She had a recent thyroid level that was normal. If we get her heart rate controlled she will be able to be discharged to home. If not she may need to be admitted on a Cardizem drip. Repeat exam at 12:41 PM patient's heart rates back up till [birth year]16[birth year]29. She remains in A-fib RVR. Initially she came down with a Cardizem bolus. She was also given her home normal dose of metoprolol 50 mg. She will need to be admitted for A-fib RVR and started on a Cardizem drip. She had I went over her labs currently she is doing well. She is going ambulate to the bathroom nurses are helping her with that. History & Record Review Discussion w/independent historian: Patient Additional record(s) reviewed:: Prior inpatient record, Prior outpatient record, Prior ED visit and No prior records Lab Data Attestation: I reviewed the patient's lab results. Lab results narrative: CBC unremarkable. White count of 9. H&H 13 and 41. Platelets 321. Chemistry shows sodium 139. Gap 14. Normal BUN of 17 and creatinine 0.9. Glucose 104. Troponin 16. 2-hour troponin actually decreased to 12. Labs: Laboratory Results - last 24 hr 10/16/24 10/16/24 09:19 11:19 WBC 9.1 RBC 4.51 Hgb 13.4 Hct 41.7 MCV 92.5 MCH 29.7 MCHC 32.1 RDW Std Deviation 54.0 H RDW Coeff of Cathy 15.9 H Plt Count 321 MPV 9.8 Immature Gran % (Auto) 0.200 Neut % (Auto) 72.1 H Lymph % (Auto) 17.4 L Wheeler % (Auto) 9.2 Eos % (Auto) 0.8 Baso % (Auto) 0.3 Absolute Neuts (auto) 6.5 Absolute Lymphs (auto) 1.58 Nucleated RBC % 0 Sodium 139 Potassium 3.5 Chloride 103 Carbon Dioxide 22.1 Anion Gap 14 BUN 17 Creatinine 0.91 Estim Creat Clear Calc 79.07 Est GFR (MDRD) Non-Af 69 BUN/Creatinine Ratio 18.8 Glucose 104 H Calcium 9.5 Troponin T High Sens 16 H D Troponin T Hi Sens 2 Hr 12 Chest x-ray, portable, single view, interpreted by myself and the radiologist. Shows borderline cardiomegaly. Otherwise no acute process. Radiography Chest X-Ray - ED: 1 View, Read by ED Physician, Read by Radiologist, Normal, Lungs, Mediastinum, Bony Structures, No Acute Disease, Chronic Changes and Cardiomegaly Diagnostic Testing: Clinical Impression(s) from Imaging Studies Chest X-Ray 10/16/24 09:18 IMPRESSION: Cardiomegaly without overt failure. Reading Location: [facility] Chest x-ray, portable, single view interpreted by by myself and the radiologist shows borderline cardiomegaly. Otherwise no acute process. No CHF. No pleural effusions. Rhythm Strip Rhythm Strip: A-fib Rate: 115 Ectopy: None EKG Initial EKG: Attestation: I personally reviewed and interpreted this EKG as follows: Interpretation: No Acute Injury Pattern and Atrial Fibrillation Comments: A-fib RVR rate 115. No acute signs of ME or ischemia. No significant change from EKG done September 16. Prior EKG tracings: available for review Prior: Unchanged Critical Care Time Critical Care Time: Yes Critical care time (excluding procedures): 30-74 minutes, Including time spent:, Discussing w/Patient &/or Family/[employer], Discussing w/Consultants, Arranging Admission or Transfer, Performing Direct Patient Care at Bedside and - (35 minutes.) Discharge Plan Dx/Rx/DC Orders Clinical Impression: Atrial fibrillation with RVR, Diabetes mellitus Disposition Disposition: Acute Care Hospital [facility]
[2024-10-16] MEDS: dilTIAZem 25 MG/5 ML Vial IV BOLUS (09:21)
[2024-10-16 09:31] LABS: Absolute Lymphocyte Count 1.58 X10^3/uL (0.83-4.51); Absolute Neutrophil Count 6.5 X10^3/uL (2.0-7.7); Basophil# 0.03 X10^3/uL; Basophil% 0.3 % (0-1); Eosinophil# 0.07 X10^3/uL; Eosinophils% 0.8 % (0-5); Hematocrit 41.7 % (37-47); Hemoglobin 13.4 g/dL (12.0-15.0); Lymphocyte # 1.58 X10^3/ul (0.83-4.51); Lymphocyte % 17.4 % (19-41); Mean Corp Hgb Conc 32.1 g/dL (32-36); Mean Corpuscular Hgb 29.7 pg (27.0-32.0); Mean Corpuscular Volume 92.5 fL (81-99); Mean Platelet Vol. 9.8 fl (6.2-12.0); Monocyte# 0.83 X10^3/uL; Monocyte% 9.2 % (0-10); NRBC Flagged by Analyzer 0 % (0-5); Neutrophil # 6.53 X10^3/uL (2.7-7.7); Neutrophil % 72.1 % (47-70); Platelet Count 321 K/mm3 (150-450); RBC Distribution Width CV 15.9 % (11.6-14.6); Red Blood Count 4.51 M/mm3 (4.2-5.4); White Blood Count 9.1 K/mm3 (4.4-11.0)
[2024-10-16 10:02] LABS: Anion Gap 14 (5-15); BUN 17 mg/dL (4-19); BUN/Creat Ratio 18.8 RATIO (10-20); Calcium,Total 9.5 mg/dL (7.6-11.0); Carbon Dioxide 22.1 mmol/L (21.0-32.0); Chloride 103 mmol/L (98-108); Creatinine, Serum 0.91 mg/dL (0.70-1.20); EST Glomerular Filtration Rate 69 (>60); Estimated Creatinine Clearance 79.07 ml/min (50-250); Glucose 104 mg/dL (70-99); Potassium 3.5 mmol/L (3.3-5.1); Sodium Level 139 mmol/L (133-145); Troponin T High Sensitivity 16 ng/L (<=14)
[2024-10-16] MEDS: Metoprolol(XL)Succ 50 MG Tablet PO (11:42)
[2024-10-16 11:53] LABS: Troponin T High Sens 2 HR 12 ng/L (<=14)
--- NOTE | 2024-10-16 12:49 | PCM.HP.STD ---
HPI - General HPI Narrative SALVADOR HENRIQUEZ, is a 64 F who presents [facility] Medical History Pulmonary hypertension MAIA (obstructive sleep apnea) Atrial fibrillation with RVR Asthma Diabetes CHF (congestive heart failure) Osteoarthritis of left knee Left knee pain Syncope and collapse Nonsustained ventricular tachycardia HTN (hypertension) Chest pain, unspecified Abnormal electrocardiogram Hypokalemia HLD (hyperlipidemia) Home Medications ?Medication ?Instructions ?Recorded ?Last Taken ?Type sertraline 100 mg tablet 100 mg PO QHS 12/24/14 10/15/24 History potassium chloride 20 mEq 20 meq PO DAILY 11/23/16 10/15/24 History tablet,extended release(part/cryst) albuterol sulfate 90 mcg/actuation 2 puff inhalation Q4H PRN SOB 07/19/21 09/15/24 History aerosol inhaler aspirin 81 mg tablet,delayed 81 mg PO DAILY 12/24/22 10/15/24 History release metformin 500 mg tablet 1,000 mg PO BID 12/24/22 10/15/24 History mometasone-formoterol HFA 200 2 inh inhalation BID 12/24/22 10/15/24 History mcg-5 mcg/actuation aerosol inhaler (Dulera) empagliflozin 10 mg tablet 10 mg PO DAILY 09/16/24 10/15/24 History (Jardiance) furosemide 20 mg tablet 20 mg PO DAILY 09/16/24 10/16/24 History montelukast 10 mg tablet 10 mg PO QHS 09/16/24 10/15/24 History rosuvastatin 40 mg tablet 40 mg PO DAILY 09/16/24 10/15/24 History apixaban 5 mg tablet (Eliquis) 5 mg PO BID #60 tabs 09/19/24 10/16/24 Rx diltiazem HCl 120 mg 120 mg PO DAILY #30 caps 09/19/24 10/15/24 Rx capsule,extended release 24 hr metoprolol tartrate 50 mg tablet 50 mg PO BID #60 tabs 09/19/24 10/15/24 Rx acetaminophen 650 mg 1,300 mg PO Q12H PRN fever or pain 10/16/24 Unknown History tablet,extended release Allergy/AdvReac Type Severity Reaction Status Date / Time ethyl alcohol Allergy Hives Verified 10/16/24 09:08 indomethacin AdvReac Rash Verified 10/16/24 09:08 Family History Father , age 55 Sudden cardiac Heart disease CVA (cerebral vascular accident) Mother Hypertension Cancer Alzheimer's disease Surgical History History of bilateral knee replacement Hx of left leg vein ablation (~09/2016) Social History Smoking Status: Never smoker alcohol intake: never substance use type: does not use caffeine: Yes Type: coffee Number of servings: 3 what type of physical activity do you participate in: none seatbelt use: always do you feel safe at home: Yes Vital Signs Vital Signs Vital Signs: 10/16/24 09:07 10/16/24 09:17 10/16/24 09:18 Temperature 97 F L Temperature Source Temporal Pulse Rate 41 L Respiratory Rate 14 Respiratory Effort Short of Breath Blood Pressure 153/108 H Blood Pressure Mean 123 Pulse Ox 99 95 Oxygen Delivery Method Room Air Room Air 10/16/24 11:15 Temperature Temperature Source Pulse Rate 94 Respiratory Rate 16 Respiratory Effort Blood Pressure 145/89 H Blood Pressure Mean 107 Pulse Ox 96 Oxygen Delivery Method Room Air Weight Weight: 113.5 kg Body Mass Index (BMI) 39.2 Results Lab / Micro Data 10/16/24 09:19 10/16/24 09:19 Labs: Laboratory Results - last 24 hr 10/16/24 09:19: WBC 9.1, RBC 4.51, Hgb 13.4, Hct 41.7, MCV 92.5, MCH 29.7, MCHC 32.1, RDW Std Deviation 54.0 H, RDW Coeff of Cathy 15.9 H, Plt Count 321, MPV 9.8, Immature Gran % (Auto) 0.200, Neut % (Auto) 72.1 H, Lymph % (Auto) 17.4 L, [place] % (Auto) 9.2, Eos % (Auto) 0.8, Baso % (Auto) 0.3, Absolute Neuts (auto) 6.5, Absolute Lymphs (auto) 1.58, Nucleated RBC % 0, Sodium 139, Potassium 3.5, Chloride 103, Carbon Dioxide 22.1, Anion Gap 14, BUN 17, Creatinine 0.91, Estim Creat Clear Calc 79.07, Est GFR (MDRD) Non-Af 69, BUN/Creatinine Ratio 18.8, Glucose 104 H, Calcium 9.5, Troponin T High Sens 16 H D 10/16/24 11:19: Troponin T Hi Sens 2 Hr 12 Rhythm Strip Rhythm Strip: A-fib Rate: 115 Ectopy: None Imaging Radiology Impression Chest X-Ray 10/16/24 09:18 IMPRESSION: Cardiomegaly without overt failure. Reading Location: [facility] Assessment & Plan Assessment/Plan PLAN: Plan Palpitations/presyncope secondary to A-fib with RVR - Despite increase in beta-blockade patient still having tachycardia - Decrease metoprolol to 50 mg p.o. twice daily - Add Cardizem 120 mg daily and will stop other home antihypertensives for now - Echocardiogram was overtly unremarkable showing an EF of 55% and mild left atrial enlargement - TSH is within normal limits - Check magnesium in a.m. Acute on chronic HFpEF - proBNP was 1365 - Echocardiogram previously does show diastolic dysfunction - Continue daily weights and I's and O's - Discontinue IV Lasix - Will hold home Lasix today as pressures old but low - Likely related to A-fib with RVR and once we achieve better rate control this should improve TIA - Highly suspect it may be related to underlying A-fib - Continue Eliquis - Continue aspirin - continue statin DM-2 - Continue Accu-Cheks - Continue SSI - Cardiac/carb controlled diet - Continue home Jardiance - Hold home metformin MAIA - Continue home CPAP with O2 bleed History of asthma - Currently stable without signs of exacerbation - As needed albuterol - Continue home inhalers - Incentive spirometry - Continue home Singulair Essential hypertension/hyperlipidemia - Continue home statin - Continue to hold home amlodipine - Discontinue home losartan - Discontinue home HCTZ -Decrease to metoprolol 50 mg twice daily -Start Cardizem 120 mg daily Depression/anxiety - Continue home sertraline Obesity - BMI 36.9 - Complicates treatment, prognosis, outcomes - Recommend weight loss DVT prophylaxis - Continue full anticoagulation with Eliquis CODE STATUS -DNR CCA okay for short-term intubation verified at the time of admission
[2024-10-16] MEDS: Diltiazem 125 MG in Dextrose 5%-Water (100mL Bag) 100 ML IV (13:07)
--- NOTE | 2024-10-16 13:27 | EKG12_ITS ---
Test Reason : PALPS Blood Pressure : */* mmHG Vent. Rate : 115 BPM Atrial Rate : * BPM P-R Int : * ms QRS Dur : 78 ms QT Int : 312 ms P-R-T Axes : * -8 -33 degrees QTcB Int : 431 ms Atrial fibrillation with rapid ventricular response Nonspecific ST and T wave abnormality Abnormal ECG Confirmed by NAZ BETHEA, SURY ([id number]), editor magazine TAYLOR OAKLEY ([id number]) on 10/20/2024 7:00:40 AM Referred By: Clara Cook Confirmed By: SURY CHILDS MD
[2024-10-16] MEDS: Propofol 200 MG/20 ML Vial 60 MG IV BOLUS (13:32)
== END 2024-10-16 14:57 | disposition home or self-care (01) ==
LOC: ED 12:44 → PCU 13:12
PROVIDERS: Emergency Provider Emergency Medicine; PCP Internal Medicine; Referring Provider Internal Medicine; Visit Provider Emergency Medicine
DX: I48.91 Unspecified atrial fibrillation (principal); I50.9 Heart failure, unspecified; I11.0 Hypertensive heart disease with heart failure; I27.20 Pulmonary hypertension, unspecified; E11.9 Type 2 diabetes mellitus without complications; E78.5 Hyperlipidemia, unspecified; J45.909 Unspecified asthma, uncomplicated; G47.33 Obstructive sleep apnea (adult) (pediatric); Z79.01 Long term (current) use of anticoagulants; Z79.82 Long term (current) use of aspirin; Z79.84 Long term (current) use of oral hypoglycemic drugs; Z79.899 Other long term (current) drug therapy
CPT/HCPCS: 71045; 80048; 84484; 85025; 92960; 93005; 96365; 96375; 99284; A4216

== ENCOUNTER 2024-12-09 17:36 | Emergency (ER) | payer MEDICARE, MEDICAID, SELFPAY ==
[2024-12-09 17:37] VITALS: BP 161/69; PULSE 73; RESP 17; TEMP 36.6; O2SAT 96; BMI 38.9
--- NOTE | 2024-12-09 18:00 | RAD_ITS ---
PROCEDURE: CHEST PA AND LATERAL 12/09/2024 REASON FOR EXAM: CHEST PAIN TECHNIQUE: CHEST PA AND LATERAL COMPARISON: 10/16/2024 FINDINGS: Mild pulmonary vascular congestion. Mild stable cardiomegaly. No focal consolidations. No pleural effusion or pneumothorax. No acute fracture. RAD/Chest PA and Lateral IMPRESSION: Mild pulmonary vascular congestion. Mild stable cardiomegaly. No focal consol idations. Reading Location: [id number]
--- NOTE | 2024-12-09 18:00 | RAD_ITS ---
PROCEDURE: CHEST PA AND LATERAL 12/09/2024 REASON FOR EXAM: CHEST PAIN TECHNIQUE: CHEST PA AND LATERAL COMPARISON: 10/16/2024 FINDINGS: Mild pulmonary vascular congestion. Mild stable cardiomegaly. No focal consolidations. No pleural effusion or pneumothorax. No acute fracture. RAD/Chest PA and Lateral IMPRESSION: Mild pulmonary vascular congestion. Mild stable cardiomegaly. No focal consol idations. Reading Location: [id number]
--- NOTE | 2024-12-09 18:24 | ED.VIS.CHEST ---
HPI History of Present Illness Chief Complaint: Chest Pain Informant: patient Onset/Context/Timing Onset: Today (Around 4:45 PM at rest.) Timing: Intermittent and - (1 episode that felt like shock. Like cardioversion. She has been cardioverted before. Lasted less than 1 minute.) Location: Substernal Current Severity: Gone Maximum Severity: Mild Worsened By: Nothing Relieved By: Nothing Associated Symptoms: Negative for Nausea, Vomiting, Diaphoresis, Dyspnea, Cough, Fever, Lightheadedness, Acid Reflux or Palpitations Narrative Narrative: 60-year-old female history of diabetes, A-fib on Eliquis, CHF prior heart cath showing stable coronary disease. No stents no bypass. Says she was known today around 4:45 PM was resting and had a sudden shock in the middle of her chest. Said it felt like she was cardioverted because she has been before. She does not have a pacemaker defibrillator. Said it lasted less than a minute. She feels fine right now. She says she felt like she does now she when the came in. She denies any recent exertional dyspnea or exertional chest pain. Prior Similar Symptoms: No Recent Illness/Hospitalization: No CVD Risk Factors: Positive for Diabetes PE Risk Factors: Negative for Recent Travel/Surgery, Recent Immobilization, Prior DVT or PE, Cancer or OCP + Smoking + >/=35 TAD Risk Factors: Negative for Marfan's Syndrome [facility] Medical History Pulmonary hypertension MAIA (obstructive sleep apnea) Atrial fibrillation with RVR Asthma Diabetes CHF (congestive heart failure) Osteoarthritis of left knee Left knee pain Syncope and collapse Nonsustained ventricular tachycardia HTN (hypertension) Chest pain, unspecified Abnormal electrocardiogram Hypokalemia HLD (hyperlipidemia) Home Medications ?Medication ?Instructions ?Recorded ?Last Taken ?Type sertraline 100 mg tablet 100 mg PO QHS 12/24/14 10/15/24 History potassium chloride 20 mEq 20 meq PO DAILY 11/23/16 10/15/24 History tablet,extended release(part/cryst) albuterol sulfate 90 mcg/actuation 2 puff inhalation Q4H PRN SOB 07/19/21 09/15/24 History aerosol inhaler aspirin 81 mg tablet,delayed 81 mg PO DAILY 12/24/22 10/15/24 History release metformin 500 mg tablet 1,000 mg PO BID 12/24/22 10/15/24 History mometasone-formoterol HFA 200 2 inh inhalation BID 12/24/22 10/15/24 History mcg-5 mcg/actuation aerosol inhaler (Dulera) empagliflozin 10 mg tablet 10 mg PO DAILY 09/16/24 10/15/24 History (Jardiance) furosemide 20 mg tablet 20 mg PO DAILY 09/16/24 10/16/24 History montelukast 10 mg tablet 10 mg PO QHS 09/16/24 10/15/24 History rosuvastatin 40 mg tablet 40 mg PO DAILY 09/16/24 10/15/24 History acetaminophen 650 mg 1,300 mg PO Q12H PRN fever or pain 10/16/24 Unknown History tablet,extended release apixaban 5 mg tablet (Eliquis) 5 mg PO BID #180 tabs 11/04/24 Unknown Rx diltiazem HCl 120 mg 120 mg PO DAILY #90 caps 11/04/24 Unknown Rx capsule,extended release 24 hr metoprolol tartrate 50 mg tablet 50 mg PO BID #180 tabs 11/04/24 Unknown Rx Allergy/AdvReac Type Severity Reaction Status Date / Time ethyl alcohol Allergy Hives Verified 11/24/24 07:50 indomethacin AdvReac Rash Verified 11/24/24 07:50 Family History Father , age 55 Sudden cardiac Heart disease CVA (cerebral vascular accident) Mother Hypertension Cancer Alzheimer's disease Surgical History History of bilateral knee replacement Hx of left leg vein ablation (~09/2016) Social History Smoking Status: Never smoker alcohol intake: never substance use type: does not use caffeine: Yes Type: coffee Number of servings: 3 what type of physical activity do you participate in: none seatbelt use: always do you feel safe at home: Yes ROS ROS ED ROS Narrative Denies recent illness. Constitutional Constitutional ED: Denies chills or fever(s) Eyes Eyes: Reports none ENT ENT ED: Denies ear pain Cardiovascular Cardiovascular: Reports chest pain; Denies palpitations or racing heartbeat Respiratory/Chest Respiratory/Chest: Denies cough, dyspnea or dyspnea on exertion Gastrointestinal Gastrointestinal: Denies abdominal pain, melena, nausea or vomiting Genitourinary Genitourinary ED: Denies dysuria or hematuria Musculoskeletal Musculoskeletal: Denies arthralgias Integumentary Denies abscess Neurologic Neurologic: Denies headache(s) Psychiatric Psychiatric: Denies anxiety Endocrine Endocrinology: Denies cold intolerance Hematologic/Lymphatic Hematologic/Lymphatic: Denies easy bleeding, easy bruising or lymphadenopathy Allergic/Immunologic Allergic/Immunologic ED: Denies mouth swelling, tongue swelling or urticaria EXAM Physical Exam Narrative Exam Narrative: Well-appearing six 4-year-old female. Vital signs stable afebrile. Pulse ox 96% on room air no hypoxia. No distress. H EENT exam pupils round react to light. Moist pink memories. Neck nontender. No JVD. No lymphadenopathy. Lungs clear to auscultation bilaterally. Heart regular rhythm no murmur. Chest wall ribs nontender. Abdomen soft nontender. Moving all 4 extremities. Nontender no edema no cords. Calves are nontender. 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 Normal dorsi plantarflexion. Equal symmetric radial pulses. Back nontender. Neurologically she is awake alert. Answering questions following commands. Benign exam. Const Vital Signs: 12/09/24 17:37 12/09/24 18:00 12/09/24 18:37 Temperature 97.9 F Temperature Source Oral Pulse Rate 73 69 Respiratory Rate 17 18 Blood Pressure 161/69 H 149/76 H Blood Pressure Mean 99 100 Pulse Ox 96 93 Oxygen Delivery Method Room Air Room Air Room Air 12/09/24 19:00 Temperature Temperature Source Pulse Rate Respiratory Rate Blood Pressure 152/71 H Blood Pressure Mean 98 Pulse Ox 92 Oxygen Delivery Method Room Air Positive well developed; Negative for cachectic, contractures or unkempt General Appearance ED: well developed and NAD; Negative for unkempt, cachectic or contractures Nutritional Appearance: Negative for cachectic HEENT Reports moist mucous membranes normocephalic and atraumatic Eyes PERRL and EOMs intact bilaterally General Eye ED: Negative for pale conjunctiva or scleral icterus Neck no lymphadenopathy, supple and no JVD General: Negative for tenderness Chest Wall inspection of chest normal and palpation of chest normal Resp normal respiratory effort and clear to auscultation bilaterally Auscultation: Negative for rales, rhonchi, wheezes or diminished lung sounds Cardio regular rate, regular rhythm, S1 normal heart sound, S2 normal heart sound and no murmurs Peripheral Pulses: pulses 2+ throughout GI normal to inspection, nondistended, normoactive bowel sounds, soft to palpation, non-tender, non-distended and no masses Back/Spine no CVA tenderness and no thoracic nor lumbar tenderness Extremity normal to inspection General Extremety ED: Negative for edema, pulses abnormal or tenderness General Extremity: Negative for edema or pulses abnormal Neuro oriented x3 and CN's II-XII intact bilaterally Sensorium / Orientation: awake, alert, oriented to person, oriented to place and oriented to time Motor Exam: strength 5/5 throughout Psych mental status grossly normal Appearance: Negative for unkempt Attitude: No agitated Mood & Affect: Negative for depressed, anxious or tearful Skin no rashes or lesions noted and no wounds General Skin Exam: Negative for jaundice Rashes: No rashes noted Trauma: Negative for abrasion or laceration Heart Score History: Slightly/Non-Suspicious ECG: Normal Age: >/= 65 years Risk Factors: 1 or 2 Risk Factors Troponin: </= Normal Limit Score: 3 MDM MDM MDM Narrative Medical decision making narrative: 64-year-old female had a shock like chest pain at 445 today. Lasted less than a minute. It was at rest. This does not sound cardiac. She will undergo cardiac workup with negative should be discharged to home. She is on Eliquis due to A-fib I do not think it is a PE. Clinically looks well she is pain-free I do not think this is dissection or pneumothorax. Repeat exam patient doing very well at 7:20 PM. Symptom-free. Clinically looks well. She and I discussed her test results. We discussed the 2-hour troponin. She deferred want to go home. I do not think this was cardiac I do not think a second troponin would be of any significant benefit and okay with that plan. She will continue her current medications follow-up with her doctor as needed. Return if worse. History & Record Review Discussion w/independent historian: Patient Additional record(s) reviewed:: Prior inpatient record, Prior outpatient record, Prior ED visit, Prior labs and No prior records Lab Data Attestation: I reviewed the patient's lab results. Lab results narrative: CBC shows a white count of 8. H&H 13 and 41. Platelets 281. Chest x-ray chronic changes no acute process. Labs: Laboratory Results - last 24 hr 12/09/24 17:45 WBC 8.8 RBC 4.54 Hgb 13.4 Hct 41.3 MCV 91.0 MCH 29.5 MCHC 32.4 RDW Std Deviation 52.5 H RDW Coeff of Cathy 15.9 H Plt Count 281 MPV 10.8 Immature Gran % (Auto) 0.300 Neut % (Auto) 76.0 H Lymph % (Auto) 13.8 L [place] % (Auto) 8.3 Eos % (Auto) 1.3 Baso % (Auto) 0.3 Absolute Neuts (auto) 6.7 Absolute Lymphs (auto) 1.21 Nucleated RBC % 0 Sodium 140 Potassium 3.8 Chloride 103 Carbon Dioxide 23.7 Anion Gap 14 BUN 16 Creatinine 0.90 Estim Creat Clear Calc 79.63 Est GFR (MDRD) Non-Af 71 BUN/Creatinine Ratio 17.4 Glucose 153 H Calcium 9.3 Troponin T High Sens 11 D Radiography Chest X-Ray - ED: 2 View, Read by ED Physician, Read by Radiologist, Heart, Lungs, Mediastinum, Bony Structures, No Acute Disease and Chronic Changes Diagnostic Testing: Clinical Impression(s) from Imaging Studies Chest X-Ray 12/09/24 18:00 IMPRESSION: Mild pulmonary vascular congestion. Mild stable cardiomegaly. No focal consolidations. Reading Location: [facility] Chest x-ray, 2 views, AP and lateral, interpreted by myself and radiologist. Normal cardiac silhouette. Normal lung mccallum. No pneumonia. No effusions. No significant pulmonary edema. Chronic changes. Rhythm Strip Rhythm Strip: Sinus Rhythm Rate: 69 Ectopy: None EKG Initial EKG: Attestation: I personally reviewed and interpreted this EKG as follows: Interpretation: Sinus Rhythm and No Acute Injury Pattern Comments: Normal sinus rhythm rate of 69 no acute signs of MO no ischemia. Discharge Plan Triage Chief Complaint: Chest Pain ED Provider: Sean Hicks Dx/Rx/DC Orders Clinical Impression: Chest pain, History of atrial fibrillation, Chronic anticoagulation, History of diabetes mellitus Instructions: ED Chest Pain, Uncertain Cause Prescriptions: No Action metformin 500 mg tablet 1,000 mg PO BID aspirin 81 mg tablet,delayed release (DR/EC) 81 mg PO DAILY Dulera 200-5 mcg/actuation HFA aerosol inhaler 2 inh inhalation BID Patient Comments: Inhale 2 Puffs as instructed twice daily. sertraline 100 MG tablet 100 mg PO QHS potassium chloride 20 MEQ tablet,ER particles/crystals 20 meq PO DAILY albuterol sulfate 90 mcg/actuation HFA aerosol inhaler 2 puff INHALATION Q4H PRN (Reason: SOB) montelukast 10 mg tablet 10 mg PO QHS Jardiance 10 mg tablet 10 mg PO DAILY rosuvastatin 40 mg tablet 40 mg PO DAILY furosemide 20 mg tablet 20 mg PO DAILY acetaminophen 650 mg tablet extended release 1,300 mg PO Q12H PRN (Reason: fever or pain) Eliquis 5 mg tablet 5 mg PO BID Qty: 180 3RF diltiazem HCl 120 mg capsule,extended release 24hr 120 mg PO DAILY Qty: 90 3RF metoprolol tartrate 50 mg tablet 50 mg PO BID Qty: 180 3RF Primary Care Provider: Dannie Ulloa Referrals: Dannie Ulloa MD [Primary Care Provider] - As Needed Activity Restrictions/Additional Instructions: Your chest x-ray, EKG and labs all look good. Follow-up with your doctor if not improving. Return if you are feeling worse. I do not think this was your heart tonight but I do not know specifically what caused the pain. Continue your current medications. Print Language: Turkish Disposition Disposition: Home, Self Care
[2024-12-09 18:34] LABS: Hematocrit 41.3 % (37-47); Hemoglobin 13.4 g/dL (12.0-15.0); Immature Granulocytes Count 0.030 X10^3/uL (0.0-0.0); Mean Corp Hgb Conc 32.4 g/dL (32-36); Mean Corpuscular Volume 91.0 fL (81-99); Mean Platelet Vol. 10.8 fl (6.2-12.0); NRBC Flagged by Analyzer 0 % (0-5); Platelet Count 281 K/mm3 (150-450); RBC Distribution Width CV 15.9 % (11.6-14.6); RBC Distribution Width SD 52.5 fl (35.1-43.9); Red Blood Count 4.54 M/mm3 (4.2-5.4); White Blood Count 8.8 K/mm3 (4.4-11.0)
[2024-12-09 18:37] VITALS: BP 149/76; PULSE 69; RESP 18; O2SAT 93
[2024-12-09 18:52] LABS: Anion Gap 14 (5-15); BUN 16 mg/dL (4-19); BUN/Creat Ratio 17.4 RATIO (10-20); Calcium,Total 9.3 mg/dL (7.6-11.0); Carbon Dioxide 23.7 mmol/L (21.0-32.0); Chloride 103 mmol/L (98-108); Estimated Creatinine Clearance 79.63 ml/min (50-250); Glucose 153 mg/dL (70-99); Potassium 3.8 mmol/L (3.3-5.1); Troponin T High Sensitivity 11 ng/L (<=14)
[2024-12-09 19:00] VITALS: BP 152/71; O2SAT 92
[2024-12-09 19:33] VITALS: BP 174/83; PULSE 61; RESP 18; TEMP 36.8; O2SAT 97
== END 2024-12-09 19:43 | disposition home or self-care (01) ==
PROVIDERS: Emergency Provider Emergency Medicine; PCP Internal Medicine; Visit Provider Emergency Medicine
DX: R07.9 Chest pain, unspecified (principal); I11.0 Hypertensive heart disease with heart failure; I50.9 Heart failure, unspecified; I48.91 Unspecified atrial fibrillation; E11.9 Type 2 diabetes mellitus without complications; E78.5 Hyperlipidemia, unspecified; I25.10 Atherosclerotic heart disease of native coronary artery without angina pectoris; J45.909 Unspecified asthma, uncomplicated; G47.33 Obstructive sleep apnea (adult) (pediatric); Z79.01 Long term (current) use of anticoagulants; Z79.82 Long term (current) use of aspirin; Z79.899 Other long term (current) drug therapy
CPT/HCPCS: 71046; 80048; 84484; 85025; 93005; 99285; A4216